=== PATIENT | female | born 1935 | race African-American/Black ===

== ENCOUNTER 2016-07-24 09:55 | Inpatient (IN) | payer OTHER, MEDICARE ==
[~2016-07-24] VITALS: Ht 162.6 cm; Wt 94.8 kg
[2016-07-24 14:30] VITALS: BP 140/82
[2016-07-24 15:56] LABS: ABSOLUTE BASOPHIL COUNT 0.1 /CUMM (0.0-0.2); ABSOLUTE EOSINOPHIL COUNT 0.3 /CUMM (0.0-0.7); ABSOLUTE GRANULOCYTE CT 6.1 /CUMM (1.4-6.5); ABSOLUTE LYMPH COUNT 2.9 /CUMM (1.2-3.4); ABSOLUTE MONOCYTE COUNT 0.6 /CUMM (0.10-0.60); BASOPHIL % 0.6 % (0.0-2.0); EOSINOPHIL % 2.9 % (0-5); GRANULOCYTE % 61.4 % (42.2-75.2); HEMATOCRIT 32.9 % (37-47); MEAN CORPUSCULAR HGB 28.8 PG (27.0-31.0); MEAN PLATELET VOLUME 10.3 FL (7.4-10.4); PLATELET COUNT 254 /CUMM (130-400); RBC DISTRIBUTION WIDTH 17.2 % (11.5-14.5); RED BLOOD CELL CT 3.66 /CUMM (4.20-5.40); WHITE BLOOD CELL COUNT 9.9 /CUMM (4.8-10.8)
--- NOTE | 2016-07-24 17:05 | History & Physical Pre-Op ---
General Information and HPI History of Present Illness: Miss Coelho is a 80-year-old diabetic female with a long-standing history of a nonhealing ulcer left heel. She has been treated for her ulcer by Dr. Clay with the additional management by an infectious disease specialist, Dr. Arredondo. She has been on a lengthy course (uncertain duration) of outpatient antibiotics. It is not clear whether Dr. Arredondo feels that her osteomyelitis was resolved. In any case, the patient has had no progression with some interval worsening of the wound bed to her left heel. Patient denies systemic signs of infection. Allergies/Medications Allergies: Coded Allergies: Penicillins (Severe, SWELLING 07/24/16) adhesive (Intermediate, RASH 07/24/16) Past History Medical History Blood Transfusion Hx: Yes Neurological: seizure EENT: NONE Cardiovascular: hypertension Respiratory: NONE Gastrointestinal: NONE Hepatic: NONE Renal: NONE Musculoskeletal: osteoarthritis Psychiatric: NONE Endocrine: diabetes, hypothyroidism Blood Disorders: DVT Cancer(s): NONE PATHOLOGY SUPERVISOR/Reproductive: NONE History of MRSA: No History of VRE: No History of CDIFF: No Isolation History: Standard Influenza Vaccine: 12/28/15 Surgical History Pertinent Surgical History: R TOE AMPUTATION L HEEL DEBRIDEMENT SPINAL FUSION Past Family/Social History Psychosocial History Where Do You Live? Home Smoking Status: Former Smoker Review of Systems Review of Systems: Unremarkable except for that noted history of present illness Exam & Diagnostic Data Last 24 Hrs of Vital Signs/I&O Vital Signs Date Time Temp Pulse Resp B/P Pulse O2 O2 Flow FiO2 Ox Delivery Rate 07/24 1430 97.0 66 18 140/82 98 Room Air Intake & Output 07/24 1600 07/24 0800 07/24 0000 Intake Total Output Total Balance Patient 210 lb Weight Physical Exam: 6 cm x 8 cm Diaz grade 2 ulceration noted to the inferior posterior margin of the left heel. There is slough overlying a mixed granular fibrotic wound bed. Moderate amount of serous drainage noted. No exposed bone noted. Pedal pulses weakly palpable bilaterally. Patient with a sensory deficit noted to the plantar feet in a moccasin type distribution bilaterally. Assessment/Plan Assessment/Plan: Necrotic ulcer left heel with probable persistent osteomyelitis left heel. Patient will be admitted for debridement and likely bone biopsy. We will consult the hospitalist service for medical comanagement. We will consult infectious disease pending the bone biopsy. As Ranked By This Provider Problem List: 1. Other acute osteomyelitis, left ankle and foot Attending MD Review Statement Attending Statement Attending MD Statement: examined this patient
[2016-07-24 22:04] VITALS: BP 132/70
[2016-07-25 07:01] VITALS: BP 130/60
--- NOTE | 2016-07-25 09:01 | RADIOLOGY REPORT ---
EXAMINATION: XR CALCANEUS, LEFT CLINICAL INFORMATION: Nonhealing ulcer of the heel. COMPARISON: Radiographs of the foot from 07/10/2016. TECHNIQUE: Lateral and axial views of the left calcaneus were obtained. FINDINGS: Again noted is a deep soft tissue wound dorsal and plantar to the calcaneus. The underlying calcaneus is eroded and sclerotic, suggestive of chronic osteomyelitis. No new findings in the examined hindfoot/ankle compared to 07/10/2016. IMPRESSION: Persistent findings of a deep soft tissue wound located dorsal and plantar to the calcaneus which remain severely eroded and sclerotic, consistent with chronic osteomyelitis.
--- NOTE | 2016-07-25 10:48 | Cons- Medical ---
ADRIENNE ALEX,MARTINE 07/25/16 1048: General Information and HPI Consulting Request Date of Consult: 07/25/16 Requested By: OJ MARQUIS DPM Reason for Consult: COMANAGEMENT FOR DIABETES, HTN, HYPOTHYROIDISM Source of Information: patient, old records Exam Limitations: no limitations History of Present Illness: Miss Zamora is a 80-year-old lady with a medical history significant for diabetes mellitus, hypertension, hypothyroidism, 2 episodes of seizures in December 2015, tapered off Keppra per neurology; 2 year history of a chronic ulcer to the left heel, per family treated by Dr. Arredondo (infectious disease) with by mouth antibiotics without alleviation of her symptoms, now been referred to Dr. Marquis for osteomyelitis for left heel chronic osteomyelitis awaiting debridement today. A medicine consultation was requested by the podiatry service for the comanagement of her chronic problems; namely diabetes, hypertension, hypothyroidism. Patient states that at home her fasting blood sugars range between 80 and 110. She cannot recall her most recent hemoglobin A1c. At present she is comfortable, denies any chest pain, shortness of breath, nausea, vomiting, diarrhea fevers or chills. Denies any history of her previous heart attack or stroke. Denies any history of cancers. Of note, in 2012, she had lower back spinal fusion surgery after which she had a left lower extremity extensive DVT which was treated with vascular surgery and post procedure she has since been on Plavix. Allergies/Medications Allergies: Coded Allergies: Penicillins (Severe, SWELLING 07/24/16) adhesive (Intermediate, RASH 07/24/16) Review of Systems Review of Systems Constitutional: Reports: see HPI. Past History Medical History Blood Transfusion Hx: Yes Neurological: seizure EENT: NONE Cardiovascular: hypertension Respiratory: NONE Gastrointestinal: NONE Hepatic: NONE Renal: NONE Musculoskeletal: osteoarthritis Psychiatric: NONE Endocrine: diabetes, hypothyroidism Blood Disorders: DVT Cancer(s): NONE OIL WELL DRILLER/Reproductive: NONE Surgical History Surgical History: R TOE AMPUTATION, L HEEL DEBRIDEMENT SPINAL FUSION Family History Relations & Conditions If Any: FATHER, ; Cause: Myocardial infarct, old. Psychosocial History Where Do You Live? Home Who Do You Live With? self Primary Language: Hungarian Smoking Status: Former Smoker ETOH Use: denies use Illicit Drug Use: denies illicit drug use Functional Ability ADLs Independent: dressing, eating, toileting, bathing. IADLs Independent: shopping, housework, finances, food prep, telephone, transportation , medication admin. Exam & Diagnostic Data Last 24 Hrs of Vital Signs/I&O Vital Signs Date Time Temp Pulse Resp B/P Pulse O2 O2 Flow FiO2 Ox Delivery Rate 07/25 0701 97.8 48 20 130/60 98 Room Air 07/24 2235 61 132/70 07/24 2204 98.0 61 20 132/70 96 Room Air 07/24 1430 97.0 66 18 140/82 98 Room Air Intake & Output 07/25 1600 07/25 0800 07/25 0000 Intake Total 0 240 Output Total 100 350 Balance -100 -350 240 Intake, Oral 0 240 Number 1 1 Bowel Movements Output, Urine 100 350 Physical Exam General Appearance: well developed/nourished, no apparent distress, alert, comfortable Head: atraumatic, normal appearance Eyes: Bilateral: normal appearance, PERRL, EOMI. Ears, Nose, Throat: normal pharynx, normal ENT inspection, hearing grossly normal Respiratory: normal breath sounds, chest non-tender Cardiovascular: regular rate/rhythm Gastrointestinal: normal bowel sounds, soft, non-tender Back: normal inspection, normal range of motion Extremities: RLE missing right great toe, LLE in sterile dressing Cranial Nerves: normal hearing, normal speech, PERRL Last 24 Hrs of Labs/Radu: Laboratory Tests 07/24/16 1500: Anion Gap 13, Estimated GFR 43 L, BUN/Creatinine Ratio 30.0 H, CBC w Diff NO MAN DIFF REQ, RBC 3.66 L, MCV 90.0, MCH 28.8, RDW 17.2 H, MPV 10.3, Gran % 61.4, Lymphocytes % 29.0, Monocytes % 6.1, Eosinophils % 2.9, Basophils % 0.6, Absolute Granulocytes 6.1, Absolute Lymphocytes 2.9, Absolute Monocytes 0.6, Absolute Eosinophils 0.3, Absolute Basophils 0.1, PUBS MCHC 32.0 L, ESR Westergren 75 H Diagnostic Data EKG Results Rate 70, W[place] 184, QRS 88, QTC 441 Sinus rhythm, nonspecific T-wave abnormalities in the lateral leads Other Results X-ray left heel July 25, 2016 PATIENT: MIRIAN ZAMORA PRESENT AGE: 80 PATIENT ACCOUNT NO: [id number] : [birth year] LOCATION: 2NA ORDERING PHYSICIAN: OJ MARQUIS DPM SERVICE DATE: 07/25/16- EXAM TYPE: RAD - XRY-HEEL, LEFT EXAMINATION: XR CALCANEUS, LEFT CLINICAL INFORMATION: Nonhealing ulcer of the heel. COMPARISON: Radiographs of the foot from 07/10/2016. TECHNIQUE: Lateral and axial views of the left calcaneus were obtained. FINDINGS: Again noted is a deep soft tissue wound dorsal and plantar to the calcaneus. The underlying calcaneus is eroded and sclerotic, suggestive of chronic osteomyelitis. No new findings in the examined hindfoot/ankle compared to 07/10/2016. IMPRESSION: Persistent findings of a deep soft tissue wound located dorsal and plantar to the calcaneus which remain severely eroded and sclerotic, consistent with chronic osteomyelitis. DICTATED BY: GILMER OCHOA MD DATE/TIME DICTATED:07/25/16853 SWEEPER OPERATOR HIGHWAYS:JONI DATE/TIME TRANSCRIBED:07/25/16853 CONFIDENTIAL, DO NOT COPY WITHOUT APPROPRIATE AUTHORIZATION. <Electronically signed in Other Vendor System> SIGNED BY: GILMER OCHOA MD 07/25/16 0901 Assessment/Plan Assessment/Plan Assessment- 1. Osteomyelitis, chronic, of the left calcaneus; likely a complication of her long-standing diabetes 2. Hypertension, well controlled 3. Hypothyroidism 4. Mild hyperkalemia, potassium 5.2 5. Diabetes mellitus, type II 6. Gout 7. Peripheral neuropathy, likely a complication of diabetes 8. Seizures, 2 episodes in December 2015, tapered off Keppra per her neurologist 9. History of provoked DVT in the past, post spinal surgery 10. Nonspecific ST to T wave abnormalities on EKG, no previous EKG to compare 11. Likely CKD, no previous labs to compare; BUN 36, [place] Slabs 1.2 Plan- - Keep nothing by mouth for now - Await OR later today - Check INR prior to procedure - Monitor off antibiotics for now - Continue clonidine, amlodipine, Lasix at current/ home doses - Continue allopurinol and Synthroid at current/ home doses - Accu-Cheks - While she is NPO, Novolin R NPO scale, D5 half-normal saline IV fluids at 75 mL per hour - Postprocedure should discontinue IV fluids, discontinue NPO scale and start on low dose insulin sliding scale - Heparin subcutaneous 5000 units every 8 hrs for DVT prophylaxis - Further management of the surgical site per podiatry - Infectious disease consultation at the discretion of podiatry - Would add on troponin, TSH, free T4 and BeB4Glm admission labs - Continue Plavix - Check CBC, chemistries and magnesium tomorrow morning Problem List: 1. Other acute osteomyelitis, left ankle and foot 2. Non-pressure chronic ulcer of left heel and midfoot with fat layer exposed Copies To: OJ MARQUIS DPM Consult Acknowledgment - Thank you for your consult request. HANNAH BONNER MD 07/26/16 1024: Assessment/Plan Consult Acknowledgment - Thank you for your consult request. Attending MD Review Statement Attending Statement Attending MD Statement: examined this patient, discuss w/resident/PA/COURTROOM CLERK, agreed w/resident/PA/COURTROOM CLERK, reviewed EMR data (avail), discussed with nursing, discussed with case mgmt Attending Assessment/Plan: 80-year-old extremely pleasant female seen and examined by me on July 25 and discussed with the resident. She has mild diabetes, hypertension hypothyroidism and neuropathy. She is here with a chronic nonhealing ulcer with likely osteo scheduled to go to the OR on the . Will follow closely for diabetic control , BP control, watch her electrolytes including the mild hyperkalemia and renal function. Likely this is baseline for her but will follow closely.
[2016-07-25 13:37] VITALS: BP 118/60
[2016-07-25 13:53] LABS: PT 11.6 SEC (9.4-12.5)
--- NOTE | 2016-07-25 15:29 | Operative Report ---
Operative/Inv Procedure Report Surgery Date: 07/25/16 Name of Procedure: 1 open incision and drainage deep to the fascial exposure of the flexor tendon and tendon sheath multiple sites left foot 2 bone biopsy left calcaneus 3 intraoperative administration of negative pressure wound therapy 4 intraoperative administration of ankle block anesthesia Pre-Operative Diagnosis: 1 open necrotic wound left heel 2 osteomyelitis left heel 3 peripheral arterial disease 4 diabetic peripheral neuropathy Post-Operative Diagnosis: The same Estimated Blood Loss: less than 50ml Surgeon/Roller Hand: OJ MARQUIS DPM Anesthesia: moderate sedation, block Operative/Procedure Note Note: After obtaining informed consent the patient was brought to the operating room and placed on the operating table in the supine position. The patient was then securely fastened to the operating table utilizing safety belt. After administration of IV sedation, 10 mL of 0.5% Marcaine plain was injected about the patient's left ankle. The foot and ankle then scrubbed prepped and draped in usual aseptic manner. Attention directed the plantar and inferior margin of the left heel, where an 8 cm x 8 cm full-thickness chronic was identified. A 15 blade visualized sharply revised skin margins. Dissection was then carried down deep to the fascia with exposure of the flexor tendon and tendon sheath multiple sites, both proximally and distally. All necrotic nonviable infected tissue sharply evacuated from bed. Dissection was then carried down to the periosteum overlying the inferior margin of the calcaneus which incised reflected. A rongeur was utilized to harvest specimen for both microbiologic and pathologic inspection. 3 L normal sterile saline fissure 50,000 units of bacitracin. Following this foot was redraped and the surgeon's top gloves changed clean gloves. Any bleeding vessels identified were cauterized or ligated as encountered. Negative pressure wound therapy was then applied followed by 4 x 4 's Kerlix and an Hua wrap. The patient is noted tolerate both procedure and anesthesia well and the patient was transported to the operating room to recovery by sent stable best assess intact all digits left foot.
[2016-07-25 16:45] VITALS: BP 130/80
[2016-07-25 21:52] VITALS: BP 104/60
[2016-07-26 06:39] VITALS: BP 120/56; BP 90/50
--- NOTE | 2016-07-26 07:12 | PN- Medicine Consult ---
MACK FITZPATRICK 07/26/16 0712: Assessment/Plan Assessment/Plan Assessment: 80-year-old -German lady with a PMH of DM, HTN, hypothyroidism, seizure disorder tapered off Keppra, chronic nonhealing ulcer of the left heel (2 years) is treated by Dr. Arredondo (infectious disease at [facility]) with PO antibiotics and now referred to Dr. Dixon for osteomyelitis. Patient underwent I&D of the site with biopsies obtained. Hemodynamically, the patient has remained stable and is currently off antibiotics. Patient reports baseline blood sugars between 8010 at home. She denies any record of previous LA or CVA. Surgical history includes lumbar spinal fusion in 2013 S/P which complicated with LE DVT for which she is currently on Plavix. Bilateral lower extremity arterial Doppler (07/26/2016): There is disease present in the left anterior tibial artery and the dorsalis pedis on the left could not be imaged. On the right, there is decrease flow in the dorsalis pedis. Nowhere present is monophasic flow or areas of significant velocity accelerations. Problem list: 1. Osteomyelitis of the left heel 2. Peripheral artery disease 3. Diabetes 4. Hypertension 5. Asymptomatic bradycardia 6. Hypothyroidism 7. CKD (unclear baseline and duration) 8. Gout 9. History of seizures (December 2015 tapered off Keppra) 10. History of provoked DVT s/p spinal surgery 11. Nonspecific ST-T changes on EKG Plan: * Arterial ultrasound as indicated above. Will vascular surgery to see if possible angiogram can be coordinated with tentative return to operating room on Sunday with Dr. Dixon * At this time the plan is to return to the operating room on Sunday for revision with debridement depending on biopsy results. We'll continue to watch off antibiotics at this time * Cardiology consult for risk stratification pending angiogram * We'll obtain records from PCP to see baseline renal function, echocardiogram * Asymptomatic bradycardia most the morning. Will obtain repeat echocardiogram and EKG * Continue Accu-Cheks, low-dose sliding scale * Plavix 75 mg daily * Allopurinol 300 mg daily * Levothyroxine 0.025 mg daily Subjective Subjective: Interval history: There are no major events overnight. Patient was noted to be bradycardic into the 50s last night with no symptoms of dizziness, shortness of breath or headache. She denies any new symptoms at this time. Review of Systems Constitutional: Reports: see HPI. EENTM: Reports: no symptoms. Cardiovascular: Reports: no symptoms. Respiratory: Reports: no symptoms. Gastrointestinal: Reports: no symptoms. Genitourinary: Reports: no symptoms. Musculoskeletal: Reports: see HPI. Objective Last 24 Hrs of Vital Signs/I&O Vital Signs Date Time Temp Pulse Resp B/P Pulse O2 O2 Flow FiO2 Ox Delivery Rate 07/26 1221 Room Air 07/26 0950 50 120/56 07/26 0947 50 120/56 07/26 0639 98.7 50 20 120/56 93 Room Air 07/25 2152 97.8 68 20 104/60 20 07/25 2142 68 104/60 07/25 1645 97.8 64 18 130/80 97 Room Air Intake & Output 07/26 1600 07/26 0800 07/26 0000 Intake Total 880 100 100 Output Total Balance 880 100 100 Intake, Oral 880 100 100 Number 1 Bowel Movements Patient 209 lb Weight Physical Exam General Appearance: no apparent distress, alert, comfortable Head: normal appearance Ears, Nose, Throat: moist mucus membranes Cardiovascular: regular rate/rhythm, normal peripheral pulses Respiratory: no respiratory distress, lungs clear, Diminshed breath sounds Abdomen: normal bowel sounds, soft, non-tender Extremities: no edema, WOund vacc in place and clean dressing intact at this time Current Medications: Current Medications Sig/Little Start time Last Medication Dose Route Stop Time Status Admin Acetaminophen 650 MG .STK-MED ONE 07/25 1952 DC PO 07/25 1953 Acetaminophen 650 MG Q4P PRN 07/24 1730 AC 07/26 PO 1151 Allopurinol 300 MG DAILY 07/25 1000 AC 07/26 PO 0947 Amlodipine Besylate 5 MG DAILY 07/25 1000 AC 07/25 PO 1010 Calcium Carbonate 500 MG BID 07/25 2200 AC 07/26 PO 0947 Clonidine 0.1 MG BID 07/24 2200 AC 07/25 PO 2142 Clopidogrel Bisulfate 75 MG DAILY 07/25 1000 AC 07/26 PO 0947 Dextrose/Sodium 1,000 ML Q13H 07/25 0600 DC 07/25 Chloride IV 0504 Furosemide 10 MG Q48H 07/25 1000 AC PO Heparin Sodium 5,000 UNIT Q8 07/25 2200 AC 07/26 (Porcine) SC 1344 Insulin Aspart 0 TIDAC 07/25 1700 AC 07/26 SC 1151 Insulin Human Regular 0 Q6 07/25 1230 DC 07/25 SC 1313 Levothyroxine Sodium 0.025 MG DAILY AC 07/25 0700 AC 07/26 PO 0557 Magnesium Oxide 400 MG BID 07/25 2200 AC 07/26 PO 0947 Patient Medication 1 ED .STK-MED ONE 07/26 1358 DC Teaching ED 07/26 1359 Pregabalin 300 MG BID 07/24 2200 AC 07/26 PO 0947 Results Last 24 Hrs Lab/Radu Results: BP 120/56, HR 50, RR 20, SPO2 93% on RA Recent Imaging Studies: Arterial Doppler bilateral lower extremities: There is disease present in the left anterior tibial artery and the dorsalis pedis on the left could not be imaged. On the right, there is decrease flow in the dorsalis pedis. Nowhere present is monophasic flow or areas of significant velocity accelerations. KAILEY ALEX,HANNAH 07/26/16 1429: Attending MD Review Statement Attending Sign Off Attending Cosign Statement: I have: examined this patient, reviewed [facility] EMR data, personally reviewd images, discussed mgmt plan w/jake, discussed mgmt plan w/CM, discussed mgmt plan w/pt. Other Findings: Patient is going to the OR today. She is a 80-year-old diabetic female who is here with a chronic heel ulcer that's likely a diabetic osteo-. She's been followed both by podiatry and ID as an outpatient. Right now we are watching her off antibiotics with plan for a bone biopsy with Dr. Dixon today. She has mild hyperkalemia and mildly elevated BUN and creatinine will check labs again in the morning with LFTs as well. And will follow closely.
--- NOTE | 2016-07-26 09:32 | Cons- Vascular Surgery ---
General Information and HPI Consulting Request Date of Consult: 07/26/16 Requested By: OJ MARQUIS DPM History of Present Illness: Ms. Coelho is a 80-year-old lady with history of hypertension, diabetes, hypothyroidism and seizure disorder. She was recently admitted to the hospital with also mild areas of the left heel. She has undergone I&D and debridement by Dr. Marquis. I was asked to evaluate the patient for adequacy of blood flow to the left foot. Allergies/Medications Allergies: Coded Allergies: Penicillins (Severe, SWELLING 07/24/16) adhesive (Intermediate, RASH 07/24/16) Past History Medical History Blood Transfusion Hx: Yes Neurological: seizure EENT: NONE Cardiovascular: hypertension Respiratory: NONE Gastrointestinal: NONE Hepatic: NONE Renal: NONE Musculoskeletal: osteoarthritis Psychiatric: NONE Endocrine: diabetes, hypothyroidism Blood Disorders: DVT Cancer(s): NONE COMBAT ENGINEER/Reproductive: NONE Surgical History Pertinent Surgical History: R TOE AMPUTATION, L HEEL DEBRIDEMENT SPINAL FUSION Family History Relations & Conditions If Any: FATHER, ; Cause: Myocardial infarct, old. Psychosocial History Where Do You Live? Home Who Do You Live With? self Primary Language: Mohawk Smoking Status: Former Smoker ETOH Use: denies use Illicit Drug Use: denies illicit drug use Functional Ability ADLs Independent: dressing, eating, toileting, bathing. IADLs Independent: shopping, housework, finances, food prep, telephone, transportation , medication admin. Review of Systems Review of Systems: Patient denies headache, dizziness, cough, palpitation, diarrhea or constipation Exam & Diagnostic Data Vital Signs and I&O Vital Signs Date Time Temp Pulse Resp B/P Pulse O2 O2 Flow FiO2 Ox Delivery Rate 07/26 0639 98.7 50 20 120/56 93 Room Air 07/25 2152 97.8 68 20 104/60 20 07/25 2142 68 104/60 07/25 1645 97.8 64 18 130/80 97 Room Air 07/25 1337 97.0 60 20 118/60 100 Room Air 07/25 1145 Room Air Intake & Output 07/26 1600 07/26 0800 07/26 0000 07/25 1600 07/25 0807/25 0000 Intake Total 100 100 525 0 240 Output Total 550 350 Balance 100 100 -25 -350 240 Intake, IV 525 Intake, Oral 100 100 0 240 Number 4 1 Bowel Movements Output, Urine 550 350 Physical Exam: Patient is alert and oriented 3 Cardiovascular: Regular rate and rhythm Lungs: Clear to auscultation bilaterally Abdomen: Soft, nontender nondistended Extremities: Palpable femoral pulses bilaterally. Bilateral upper and lower extremities warm to touch. There is a wound VAC in place on the left heel Assessment/Plan Assessment/Plan 80-year-old lady with peripheral arterial disease risk factors of hypertension and diabetes presents with osteomyelitis of the left heel. Given nonpalpable pedal pulses and osteomyelitis of the left heel, I think she will benefit from an angiogram of the left leg with possible intervention. First, I would recommend an arterial ultrasound of the left lower extremity. I will follow closely with you and once okay from the medical standpoint for an angiogram, she will be scheduled in the operating room as an inpatient. If an angiogram cannot be done on this admission due to scheduling availability, it can certainly be done as an outpatient. Consult Acknowledgment - Thank you for your consult request. Attending MD Review Statement Attending Statement Attending MD Statement: examined this patient, discuss w/resident/PA/CASE INVESTIGATOR
--- NOTE | 2016-07-26 14:35 | ULTRASOUND REPORT ---
EXAMINATION: NONINVASIVE ASSESSMENT OF THE ARTERIES OF BOTH LOWER EXTREMITIES INTERPRETING VASCULAR \T\ INTERVENTIONAL RADIOLOGIST: Олег Haider MD CLINICAL INFORMATION: Nonhealing ulcers both feet. TECHNIQUE: Bilateral lower extremity duplex ultrasound was performed with velocity measurements and waveform analysis in the common femoral arteries, profunda femoris arteries, proximal mid and distal superficial femoral arteries, popliteal arteries and tibial vessels. This study was performed only at rest. COMPARISON: None FINDINGS: velocities in cm/sec and phasicity as well as the presence of plaque are reported below RIGHT LEG: common femoral: 129 profunda femoris: 95 proximal SFA: 77 mid SFA: 101 distal SFA: 107 popliteal: 66 Posterior tibial: 155 Anterior tibial: 157 Dorsalis pedis: 29 Flow at all levels is biphasic. Arterial calcifications are noted. LEFT LEG: common femoral: 127 profunda femoris: 62 proximal SFA: 114 mid SFA: 138 distal SFA: 105 popliteal: 130 Posterior tibial: 150 Anterior tibial: 67 (diminished) Dorsalis pedis: Could not measure because of bandages. Flowed all levels is either tri or biphasic. Arterial calcification is noted. IMPRESSION: There is disease present in the left anterior tibial artery and the dorsalis pedis on the left could not be imaged. On the right, there is decrease flow in the dorsalis pedis. Nowhere present is monophasic flow or areas of significant velocity accelerations.
[2016-07-26 15:14] VITALS: BP 110/70
--- NOTE | 2016-07-26 15:35 | PN- Podiatry ---
Subjective Subjective: Patient seen at bedside without any new acute complaints. She denies nausea vomiting fever chills. Patient denies left foot pain. Objective Vital Signs and I&Os Vital Signs Date Time Temp Pulse Resp B/P Pulse O2 O2 Flow FiO2 Ox Delivery Rate 07/26 1514 97.4 70 20 110/70 97 07/26 1221 Room Air 07/26 0950 50 120/56 07/26 0947 50 120/56 07/26 0639 98.7 50 20 120/56 93 Room Air 07/25 2152 97.8 68 20 104/60 20 07/25 2142 68 104/60 07/25 1645 97.8 64 18 130/80 97 Room Air Intake & Output 07/26 1600 07/26 0800 07/26 0000 07/25 1600 07/25 0800 07/25 0000 Intake Total 1380 100 100 525 0 240 Output Total 550 350 Balance 1380 100 100 -25 -350 240 Intake, IV 525 Intake, Oral 1380 100 100 0 240 Number 2 4 1 Bowel Movements Output, Urine 550 350 Patient 209 lb Weight Physical Exam: Dressing left foot clean dry and intact. VAC in place with approximate 75 mL of serosanguineous drainage noted to the canister. We went deep palpation bilateral lower extremity's. Assessment/Plan Assessment/Plan Nonhealing ulcer with probable osteomyelitis left foot. Follow-up pathology and cultures. Patient to the OR hopefully coordinated with vascular for revision versus skin grafting pending pathology. Core Measures/Miscellaneous Venous Thromboembolism VTE Risk Factors: Age > 40, Immobility, paresis, Surgery VTE Contraindications: No Contraindications VTE Diagnosis: No Beta Jesus Alberto Is Beta Jesus Alberto a Home Med? No If Yes, Was This Ordered Today? No Antibiotics Is Patient on Antibiotics? No Attending MD Review Statement Attending Statement Attending MD Statement: examined this patient
[2016-07-26 21:35] VITALS: BP 174/70
--- NOTE | 2016-07-27 07:17 | PN- Medicine Consult ---
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 Arredondo (infectious disease at [facility]) with PO antibiotics and now referred to Dr. Dixon for osteomyelitis. Patient underwent I&D of the site with biopsies obtained. Hemodynamically, the patient has remained stable and is currently off antibiotics. She denies any record of previous ME or CVA. Surgical history includes lumbar spinal fusion in 2012 S/P which complicated with LE DVT for which she is currently on Plavix. Bilateral lower extremity arterial Doppler (07/26/2016): There is disease present in the left anterior tibial artery and the dorsalis pedis on the left could not be imaged. On the right, there is decrease flow in the dorsalis pedis. Nowhere present is monophasic flow or areas of significant velocity accelerations. Problem list: 1. Osteomyelitis of the left heel 2. Peripheral artery disease 3. Diabetes 4. Hypertension 5. Asymptomatic bradycardia 6. Hypothyroidism 7. CKD (unclear baseline and duration) 8. Gout 9. History of seizures (December 2015 tapered off Keppra) 10. History of provoked DVT s/p spinal surgery 11. Nonspecific ST-T changes on EKG Plan: * Currently awaiting records from [place] and [facility] * Cardiology consult for this morning on risk stratification * Continue Accu-Cheks, low-dose sliding scale. NPO after midnight pending return to operating room tomorrow * Plavix 75 mg daily * Allopurinol 300 mg daily * Levothyroxine 0.025 mg daily Problem List: 1. Other acute osteomyelitis, left ankle and foot Subjective Subjective: Interval history: This morning the patient denies being in any acute distress. She did experience some discomfort from her left heel last night which was relieved with Tylenol. She denies any fevers, chills, chest pain, shortness of breath palpitations or dizziness over the past 24 hours. Review of Systems Constitutional: Reports: see HPI. EENTM: Reports: no symptoms. Cardiovascular: Reports: no symptoms. Respiratory: Reports: no symptoms. Gastrointestinal: Reports: no symptoms. Genitourinary: Reports: no symptoms. Musculoskeletal: Reports: see HPI. Objective Last 24 Hrs of Vital Signs/I&O Vital Signs Date Time Temp Pulse Resp B/P Pulse O2 O2 Flow FiO2 Ox Delivery Rate 07/27 0730 97.9 65 20 164/70 96 Room Air 07/27 0729 97.9 65 20 164/70 96 Room Air 07/26 2223 63 174/70 07/26 2135 98.2 63 20 174/70 96 Room Air 07/26 1514 97.4 70 20 110/70 97 07/26 1221 Room Air 07/26 0950 50 120/56 07/26 0947 50 120/56 Intake & Output 07/27 0800 07/27 0000 07/26 1600 Intake Total 695 556 7081 Output Total 600 Balance 100 -500 1380 Intake, Oral 231 345 9555 Number 2 Bowel Movements Output, Urine 600 Patient 209 lb Weight Physical Exam General Appearance: no apparent distress, alert, comfortable Head: atraumatic Cardiovascular: regular rate/rhythm, normal peripheral pulses Respiratory: no respiratory distress, Diminished breath sounds in the basilar regions bilaterally Abdomen: normal bowel sounds, soft, non-tender Extremities: left heel covered in a Hua bandage at this time with no evidence of active bleeding/drainage. Wound VAC in place with approximately 100 mL dark red fluid Current Medications: Current Medications Sig/Little Start time Last Medication Dose Route Stop Time Status Admin Acetaminophen 650 MG .STK-MED ONE 07/26 2218 DC PO 07/26 2219 Acetaminophen 650 MG .STK-MED ONE 07/26 1147 DC PO 07/26 1148 Acetaminophen 650 MG Q4P PRN 07/24 1730 AC 07/26 PO 2223 Allopurinol 300 MG DAILY 07/25 1000 AC 07/26 PO 0947 Amlodipine Besylate 5 MG DAILY 07/25 1000 AC 07/25 PO 1010 Calcium Carbonate 500 MG BID 07/25 2200 AC 07/26 PO 2223 Clonidine 0.1 MG BID 07/24 2200 AC 07/26 PO 2223 Clopidogrel Bisulfate 75 MG DAILY 07/25 1000 AC 07/26 PO 0947 Furosemide 10 MG Q48H 07/25 1000 AC PO Heparin Sodium 5,000 UNIT Q8 07/25 2200 AC 07/27 (Porcine) SC 0637 Insulin Aspart 0 TIDAC 07/25 1700 AC 07/26 SC 1700 Levothyroxine Sodium 0.025 MG DAILY AC 07/25 0700 AC 07/27 PO 0637 Magnesium Oxide 400 MG BID 07/25 2200 AC 07/26 PO 2224 Patient Medication 1 ED .[facility]-MED ONE 07/26 1358 DC Teaching ED 07/26 1359 Pregabalin 300 MG BID 07/240 AC 07/26 PO 2222 Results Last 24 Hrs Lab/Radu Results: Laboratory Tests 07/27/16 0632: Sodium Pending, Potassium Pending, Chloride Pending, Carbon Dioxide Pending, Anion Gap Pending, BUN Pending, Creatinine Pending, BUN/Creatinine Ratio Pending , Total Bilirubin Pending, Direct Bilirubin Pending, AST Pending, ALT Pending, Alkaline Phosphatase Pending, Total Protein Pending, Albumin Pending, CBC w Diff Pending, WBC Pending, RBC Pending, Hgb Pending, Hct Pending, MCV Pending, MCH Pending, RDW Pending, Plt Count Pending, MPV Pending, PUBS MCHC Pending 07/26/16 1650: Troponin I < 0.01 KAILEY ALEX,HANNAH 07/27/16 1000: Attending MD Review Statement Attending Sign Off Attending Cosign Statement: I have: examined this patient, reviewed [facility] EMR data, discussd w/resident/PA/ [employer], discussed mgmt plan w/jake, discussed mgmt plan w/pt, agreed w/resident/PA/ [employer]. Other Findings: Patient feels okay. Her blood pressure slightly high at 160/70 but she is asymptomatic from it. She is a 80-year-old with diabetes, peripheral arterial disease, hypertension and hypothyroidism who is here with chronic osteo of the left calcaneus. Dr. Dixon is planning to take her back to the OR on Sunday for further surgical treatment and is trying to coordinate with vascular for revascularization at the same time. Given all of her problems, her bradycardia and her atherosclerotic equivalent, we called cardiology to see her in anticipation of vascular revascularization on Sunday. We need more records from [place] and [place] as to the workup done so far and medications including Plavix that she is on. She also likely has CKD and will need to follow that.
[2016-07-27 07:29] VITALS: BP 164/70
[2016-07-27 07:30] VITALS: BP 164/70
[2016-07-27 07:51] LABS: ABSOLUTE BASOPHIL COUNT 0 /CUMM (0.0-0.2); ABSOLUTE EOSINOPHIL COUNT 0.2 /CUMM (0.0-0.7); ABSOLUTE GRANULOCYTE CT 4.7 /CUMM (1.4-6.5); ABSOLUTE LYMPH COUNT 2.6 /CUMM (1.2-3.4); ABSOLUTE MONOCYTE COUNT 0.4 /CUMM (0.10-0.60); BASOPHIL % 0.4 % (0.0-2.0); EOSINOPHIL % 3.1 % (0-5); GRANULOCYTE % 58.9 % (42.2-75.2); HEMATOCRIT 30.8 % (37-47); MEAN CORPUSCULAR HGB CONC 32.1 G/DL (33.0-37.0); MEAN CORPUSCULAR VOLUME 90.2 FL (81.0-99.0); MEAN PLATELET VOLUME 10.6 FL (7.4-10.4); PLATELET COUNT 221 /CUMM (130-400); RBC DISTRIBUTION WIDTH 16.8 % (11.5-14.5); RED BLOOD CELL CT 3.42 /CUMM (4.20-5.40); WHITE BLOOD CELL COUNT 8.1 /CUMM (4.8-10.8)
--- NOTE | 2016-07-27 10:50 | Event Note ---
Event Note Event Note: Medical record history: [facility]: * LLE angiogram with stenting of left superficial femoral artery (05/24/2015). Normal aorta and iliac arteries bilaterally. 70% calcified stenosis of the distal superficial femoral artery. Single-vessel runoff to the foot via the peroneal artery with collateralization to the posterior tibial artery. 7 mm 4 cm self-expanding stent placed and distal superficial femoral artery with 0% residual stenosis * Surgical history: Lumbar fusion with transpedicular screws in L2, L3, L5. Fusion at L4-L5 level. (2004) [facility]: * EGD 04/28/2013: Severe distal erosive gastritis , 3-4 cm sliding hiatal hernia * Colonoscopy in 2010: Diverticulosis, colonic polyp * Chronic osteomyelitis of left heel ongoing 3 years, on suppressive doxycycline 100 mg PO Q 12 and cefuroxime 250 mg PO Q12 * Brief symptomatic seizures 2 on 03/25/2016 * CTA head and neck (03/26/2016): Atherosclerotic plaque bilateral carotids. 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 Moderate stenosis of the intracranial portion of R vertebral artery, 55% stenosis of cavernous segment of internal carotids. This test was ordered in the setting of an episode of seizure during that admission. Pertinent labs at the time: calcium 5.5, magnesium 0.4. Patient was on Keppra 500 mg Q12 which has since been tapered off. Protonix discontinued at the time for potential exacerbation of hypomagnesemia. Lasix changed to Q48hrs * MRI brain (03/29/2016): Limited exam secondary to motion. No acute intracranial process. Left sphenoid sinus mucocele * EEG (03/26/2016): Normal awake and sleep continues EEG. No seizures, periodic patterns or epileptiform discharges were seen. 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
--- NOTE | 2016-07-27 12:35 | Cons- Cardiology ---
General Information and HPI Consulting Request Date of Consult: 07/27/16 Requested By: OJ MARQUIS DPM Reason for Consult: Preoperative cardiac risk assessment Source of Information: patient History of Present Illness: This is a 72 atrial female with a past medical history of hypertension, diabetes , peripheral artery disease with reported prior lower extremity stent, hypothyroidism, and chronic left foot osteomyelitis who is being evaluated for possible further debridement and additional lower extremity revascularization. The patient denies any known cardiac history and denies any history of chest pain, palpitations, dyspnea, dizziness, headache, or slurring of speech. She does not improve very much at baseline and uses a wheelchair primarily because of the chronic osteomyelitis. On my interview with the patient today the she offered no complaints other than discomfort in her left leg. She denies orthopnea or paroxysmal nocturnal dyspnea. Allergies/Medications Allergies: Coded Allergies: Penicillins (Severe, SWELLING 07/24/16) adhesive (Intermediate, RASH 07/24/16) Current Medications: Current Medications Sig/Little Start time Last Medication Dose Route Stop Time Status Admin Acetaminophen 650 MG .STK-MED ONE 07/26 2218 DC PO 07/26 221 Acetaminophen 650 MG Q4P PRN 07/24 1730 AC 07/27 PO 0859 Allopurinol 300 MG DAILY 07/25 1000 AC 07/27 PO 0857 Amlodipine Besylate 5 MG DAILY 07/25 1000 AC 07/27 PO 0857 Calcium Carbonate 500 MG BID 07/25 2200 AC 07/27 PO 0856 Clonidine 0.1 MG BID 07/24 2200 AC 07/27 PO 0857 Clopidogrel Bisulfate 75 MG DAILY 07/25 1000 AC 07/27 PO 0857 Furosemide 10 MG Q48H 07/25 1000 AC 07/27 PO 0900 Heparin Sodium 5,000 UNIT Q8 07/25 2200 AC 07/27 (Porcine) SC 0637 Insulin Aspart 0 TIDAC 07/25 1700 AC 07/27 SC 0900 Levothyroxine Sodium 0.025 MG DAILY AC 07/25 0700 AC 07/27 PO 0637 Magnesium Oxide 400 MG BID 07/25 2200 AC 07/27 PO 0857 Nystatin 1 JUAN JOSE TID PRN 07/27 0930 AC TOP Patient Medication 1 ED .STK-MED ONE 07/26 1358 DC Teaching ED 07/26 1359 Pregabalin 300 MG BID 07/24 2200 AC 07/27 PO 0857 Review of Systems Review of Systems: Review of systems as per HPI. The remainder of a 10 point review of systems was reviewed and was otherwise negative. Past History Medical History Blood Transfusion Hx: Yes Neurological: seizure EENT: NONE Cardiovascular: hypertension Respiratory: NONE Gastrointestinal: NONE Hepatic: NONE Renal: NONE Musculoskeletal: osteoarthritis Psychiatric: NONE Endocrine: diabetes, hypothyroidism Blood Disorders: DVT Cancer(s): NONE AUTO HIKER/Reproductive: NONE Surgical History Surgical History: R TOE AMPUTATION, L HEEL DEBRIDEMENT SPINAL FUSION Family History Relations & Conditions If Any: FATHER, ; Cause: Myocardial infarct, old. Psychosocial History Where Do You Live? Home Who Do You Live With? self Primary Language: Lao Smoking Status: Former Smoker ETOH Use: denies use Illicit Drug Use: denies illicit drug use Functional Ability ADLs Independent: dressing, eating, toileting, bathing. IADLs Independent: shopping, housework, finances, food prep, telephone, transportation , medication admin. Exam & Diagnostic Data Vital Signs and I&O Vital Signs Date Time Temp Pulse Resp B/P Pulse O2 O2 Flow FiO2 Ox Delivery Rate 07/27 1145 Room Air 07/27 0857 65 164/70 07/27 0857 65 164/70 07/27 0730 97.9 65 20 164/70 96 Room Air 07/27 0729 97.9 65 20 164/70 96 Room Air 07/26 2223 63 174/70 07/26 2135 98.2 63 20 174/70 96 Room Air 07/26 1514 97.4 70 20 110/70 97 Intake & Output 07/27 1600 07/27 0800 07/27 0000 07/26 1600 07/26 0800 07/26 0000 Intake Total 400 550 867 4627 100 100 Output Total 300 600 Balance 100 100 -500 1380 100 100 Intake, Oral 400 188 134 8173 100 100 Number 1 2 Bowel Movements Output, Urine 300 600 Patient 209 lb Weight Physical Exam: General: no apparent distress. Alert. Eyes: No obvious scleral icterus. HEENT: No jugular venous distention or abnormal jugular venous pulsations. Cardiovascular: Normal intensity S1/S2. Regular. Respiratory: No rales or rhonchi. Abdomen: no guarding or rebound tenderness. Musculoskeletal: Decreased peripheral pulses, left foot wound VAC, trace lower extremity edema Skin: Warm Neurologic: No gross focal deficits noted. Labs/Radu Results: Laboratory Tests 07/27 07/26 07/25 0632 1650 1310 Chemistry Sodium (137 - 145 mmol/L) 145 Potassium (3.5 - 5.1 mmol/L) 5.1 Chloride (98 - 107 mmol/L) 110 H Carbon Dioxide (22 - 30 mmol/L) 26 Anion Gap (5 - 16) 9 BUN (7 - 17 mg/dL) 39 H Creatinine (0.5 - 1.0 mg/dL) 1.3 H Estimated GFR (>60 ml/min) 40 L BUN/Creatinine Ratio (7 - 25 %) 30.0 H Total Bilirubin (0.2 - 1.3 mg/dL) 0.4 Direct Bilirubin (< 0.4 mg/dL) 0.3 AST (14 - 36 U/L) 27 ALT (9 - 52 U/L) 35 Alkaline Phosphatase (<127 U/L) 116 Troponin I (< 0.11 ng/ml) < 0.01 Total Protein (6.3 - 8.2 g/dL) 7.1 Albumin (3.5 - 5.0 g/dL) 3.4 L Coagulation PT (9.4 - 12.5 SEC) 11.6 INR (0.90 - 1.19) 1.11 Hematology CBC w Diff NO MAN DIFF REQ WBC (4.8 - 10.8 /CUMM) 8.1 RBC (4.20 - 5.40 /CUMM) 3.42 L Hgb (12.0 - 16.0 G/DL) 9.9 L Hct (37 - 47 %) 30.8 L MCV (81.0 - 99.0 FL) 90.2 MCH (27.0 - 31.0 PG) 29.0 RDW (11.5 - 14.5 %) 16.8 H Plt Count (130 - 400 /CUMM) 221 MPV (7.4 - 10.4 FL) 10.6 H Gran % (42.2 - 75.2 %) 58.9 Lymphocytes % (20.5 - 51.1 %) 32.2 Monocytes % (1.7 - 9.3 %) 5.4 Eosinophils % (0 - 5 %) 3.1 Basophils % (0.0 - 2.0 %) 0.4 Absolute Granulocytes (1.4 - 6.5 /CUMM) 4.7 Absolute Lymphocytes (1.2 - 3.4 /CUMM) 2.6 Absolute Monocytes (0.10 - 0.60 /CUMM) 0.4 Absolute Eosinophils (0.0 - 0.7 /CUMM) 0.2 Absolute Basophils (0.0 - 0.2 /CUMM) 0 PUBS MCHC (33.0 - 37.0 G/DL) 32.1 L Diagnostic Data EKG Results Tracing was personally reviewed and shows sinus rhythm at 63 bpm with nonspecific STT abnormalities Other Results Lower extremity ultrasound IMPRESSION: There is disease present in the left anterior tibial artery and the dorsalis pedis on the left could not be imaged. On the right, there is decrease flow in the dorsalis pedis. Nowhere present is monophasic flow or areas of significant velocity accelerations. Assessment/Plan Assessment/Plan 1. Peripheral arterial disease with reported prior lower extremity stent 2. Chronic left foot osteomyelitis requiring debridement 3. Hypertension 4. History of diabetes 5. History of hypothyroidism Patient offers no history of chest pain or dyspnea. Currently has no evidence of acute coronary syndrome or decompensated congestive heart failure. Unclear why the patient is not on statin therapy in the setting of known peripheral arterial disease with diabetes. Would obtain a baseline lipid panel and initiate statin therapy in the absence of any known medical contraindication. I suspect her low level asymptomatic bradycardia is due to clonidine use which can be continued. Blood pressure elevated today but that may be due to the fact that she did not get her amlodipine yesterday. If blood pressure continues to run above goal can consider increasing the amlodipine. She is estimated to be at moderate cardiovascular risk for the planned procedures given her medical comorbidities including documented peripheral vascular disease. Sae Shin MD [facility] Consult Acknowledgment - Thank you for your consult request.
--- NOTE | 2016-07-27 13:36 | PN- Podiatry ---
Subjective Subjective: Patient seen at bedside with no new complaints. Afebrile overnight. Patient denies left foot pain. Objective Vital Signs and I&Os Vital Signs Date Time Temp Pulse Resp B/P Pulse O2 O2 Flow FiO2 Ox Delivery Rate 07/27 1145 Room Air 07/27 0857 65 164/70 07/27 0857 65 164/70 07/27 0730 97.9 65 20 164/70 96 Room Air 07/27 0729 97.9 65 20 164/70 96 Room Air 07/26 2223 63 174/70 07/26 2135 98.2 63 20 174/70 96 Room Air 07/26 1514 97.4 70 20 110/70 97 Intake & Output 07/27 1600 07/27 0800 07/27 0000 07/26 1600 07/26 0800 07/26 0000 Intake Total 400 044 799 3722 100 100 Output Total 300 600 Balance 100 100 -500 1380 100 100 Intake, Oral 400 490 681 5115 100 100 Number 1 2 Bowel Movements Output, Urine 300 600 Patient 209 lb Weight Physical Exam: Dressing left foot clean dry and intact. No strikethrough identified. VAC in place with approximately 110 mL of serosanguineous drainage noted to the canister. No pain with deep palpation bilateral lower extremities. Assessment/Plan Assessment/Plan Nonhealing ulcer likely left foot osteomyelitis. Follow-up pathology. Patient' s the OR tomorrow for grafting versus further debridement pending path. Core Measures/Miscellaneous Venous Thromboembolism VTE Risk Factors: Age > 40, Immobility, paresis, Surgery VTE Contraindications: No Contraindications VTE Diagnosis: No Beta Jesus Alberto Is Beta Jesus Alberto a Home Med? No If Yes, Was This Ordered Today? No Antibiotics Is Patient on Antibiotics? No Attending MD Review Statement Attending Statement Attending MD Statement: examined this patient
--- NOTE | 2016-07-27 13:39 | Discharge Summary ---
Visit Information Visit Dates Admission Date: 07/24/16 Discharge Date: 08/05/2016 Hospital Course Course Attending Physician: OJ DIXON DPM Primary Care Physician: PANCHO NUR MD Other Care Providers: Dr. Shin (cardiology) Dr. Boogie (vascular surgeon) Consulting Request: Consulting Specialty: Cardiology Hospital Course: Mrs Coelho 80-year-old -[place] lady with a PMH of DM, HTN, hypothyroidism, seizure disorder tapered off Keppra, Chronic osteomyelitis of left heel ongoing 3 years, on suppressive doxycycline 100 mg PO Q 12 and cefuroxime 250 mg PO Q12 treated by Dr. Arredondo (infectious disease at [facility]), vitamin D deficiency, Stage III CKD, anemia who was admitted for evaluation of a chronic nonhealing ulcer to the left heel with previous diagnosis of osteomyelitis. Past Surgical history: Lumbar fusion with transpedicular screws in L2, L3, L5. Fusion at L4-L5 level. (2004). Previous angiogram of left lower extremity (05/24/2015): LLE angiogram with stenting of left superficial femoral artery (05/24/2015). Normal aorta and iliac arteries bilaterally. 70% calcified stenosis of the distal superficial femoral artery. Single-vessel runoff to the foot via the peroneal artery with collateralization to the posterior tibial artery. 7 mm 4 cm self-expanding stent placed and distal superficial femoral artery with 0% residual stenosis. VS on admission: BP 140/82, HR 66, RR 18, SPO2 98% on RA, T 97.0 Pertinent physical exam findings on admission: Right lower extremity missing right great toe. Left lower extremity was covered in a sterile dressing Pertinent labs on admission: WBC 9.9, H&H 10.5/32.9, platelets 254, sodium 141, potassium 5.2, chloride 105, BUN/CR 36/1.2 EKG: HR 70, NV interval 184, QTC 441. Sinus rhythm, nonspecific T-wave abnormalities in the lateral leads X-ray of the left heel: Persistent findings of a deep soft tissue wound located dorsal and plantar to the calcaneus which remain severely eroded and sclerotic, consistent with chronic osteomyelitis. Bilateral lower extremity arterial Doppler (07/26/2016): There is disease present in the left anterior tibial artery and the dorsalis pedis on the left could not be imaged. On the right, there is decrease flow in the dorsalis pedis. Nowhere present is monophasic flow or areas of significant velocity accelerations. Patient was admitted to the general medicine floor with comanagement between Kandis and internal medicine team for the following problems: 1. Osteomyelitis of the left calcaneus s/p I&D X2, split thickness skin graft to left heel 2. 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 Diarrhea: Resolved 4. Asymptomatic bradycardia 5. Hypomagnesemia 6. PAD 7. Pain management 8. Diabetes 9. Hypertension 10. Hypothyroidism 11. Stage III chronic kidney disease 12. Gout 13. Previous seizure in the setting of hypomagnesemia and hypocalcemia 14. History of provoked DVT s/p spinal surgery Hospital course: 1. Osteomyelitis of the left calcaneus * The patient was found to have an open necrotic wound of the left heel with a known previous diagnosis of osteomyelitis in the setting of PAD and diabetic peripheral neuropathy. * I&D deep to the fascial exposure of the flexor tendon and tendon sheath, biopsies of left calcaneus on 07/25/2016: Negative cultures * Repeat I&D, biopsy and debridement of left calcaneus on 07/31/2016: Bone biopsy culture positive for enterococcus, Morganelli morganii. Patient received 1 dose of meropenem on 08/04/2016 * Split thickness skin graft to left heel on 08/03/2016 with application of negative pressure wound VAC * Plan for wound VAC to be in place for a few days, strict nonweightbearing status until follow-up with Dr. Dixon * Bone biopsy from 07/31/2016 positive for enterococcus, Morganelli morganii. Throughout the hospital course the patient was assessed by our infectious disease specialist Dr. Telles, maintained off antiobitics but received 1 dose of meropenem 2. Diarrhea: * Intermittently throughout the hospital course the patient was noted to have multiple episodes of loose bowel movements. Stool C. difficile returned negative , no evidence of leukocytosis/bandemia or fevers throughout the hospital course * In retrospect, the patient had been receiving magnesium supplementation PO BID which likely played a role in the diarrhea. Complete resolution after discontinuation of the magnesium supplementation + 2 doses of loperamide 3. Asymptomatic bradycardia * The patient's heart rate most of the hospital course was in the 50s. We consulted with cardiology (Dr Rousseau and Dr Isaac). This was attributed likely to be secondary to the sympathetic suppression in the setting of clonidine * Prior antihypertensive regimen: Clonidine 0.1 mg BID, amlodipine 5 mg daily * Thyroid function studies stable * Plan for tapering off clonidine and continuing her on Norvasc: 5 day taper off clonidine (started 08/03/2016) with 0.1 mg daily 3 days, 0.05 mg daily 2 days and then stop. * Amlodipine 2.5 mg daily and titrate up as tolerated for target blood pressure per JNC 8 criteria 4. Peripheral artery disease * Continued Plavix 75 mg daily * We started the patient on atorvastatin 40 mg daily * Patient was seen by our vascular surgeon (Dr. Boogie) * Ultrasound-guided right common femoral artery access on 07/31/2016. Found to have patent aorta no significant disease, patent BL common iliac, external iliac and intracardiac arteries with no significant disease. Patent L common femoral and profunda femoris with no significant disease. SFA is patent from its origin with no significant disease. Popliteal arteries patent and no significant disease. Tibial peroneal trunk is patent. Anterior tibial artery patent from its origin with a severe disease in the proximal segment. This artery shortly thereafter includes and reconstitutes at the dorsalis pedis. The posterior tibial artery has a very tight stenosis from its origin and has diffuse disease in the midsegment. This artery occludes in the distal segment and reconstitutes at the ankle 5. Diabetes * Diabetic diet, Low-dose sliding scale and Accu-Cheks throughout the hospital course with blood sugars well controlled 6. Hypertension * Tapering off clonidine and continuing her on Norvasc: 5 day taper off clonidine (started 08/03/2016) with 0.1 mg daily 3 days, 0.05 mg daily 2 days and then stop. * Amlodipine 2.5 mg daily and titrate up as tolerated * Recommend follow-up blood pressure readings and HR readings over the next week , follow-up with PCP for further medication adjustment 7. Hypothyroidism * Continued Synthroid 0.025 mg daily * TFTs checked during the hospital course WNL 8. Stage III chronic kidney disease * Remained stable throughout the hospital course. Intermittent gentle diuresis with D5 half-normal saline 9. Gout * Continued allopurinol 300 mg daily 10. Seizure in the setting of hypomagnesemia and hypocalcemia * Calcium levels remained within normal limits. Intermittent mild hypomagnesemia supplemented to maintain above 2.0 11. History of provoked DVT s/p spinal surgery * DVT prophylaxis maintained with heparin 5000 units subcutaneous Q8 Allergies: Coded Allergies: Penicillins (Severe, SWELLING 07/24/16) adhesive (Intermediate, RASH 07/24/16) Disposition Summary Disposition Principal Diagnosis: 1. Osteomyelitis of the left calcaneus s/p I&D X2, split thickness skin graft to left heel Additional Diagnosis: 2. 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 Diarrhea: Resolved 4. Asymptomatic bradycardia 5. Hypomagnesemia 6. PAD 7. Pain management 8. Diabetes 9. Hypertension 10. Hypothyroidism 11. Stage III chronic kidney disease 12. Gout 13. Previous seizure in the setting of hypomagnesemia and hypocalcemia 14. History of provoked DVT s/p spinal surgery Discharge Disposition: SNF Discharge Instructions General Discharge Information Code Status: Full Code Patient's Diet: Consistent carbohydrate 3 Patient's Activity: Strict nonweightbearing status to the left foot until cleared by Dr. Dixon Follow-Up Instructions/Appts: Please follow-up with Dr. Dixon at the next scheduled appointment. Please follow-up with her PCP within one week after discharge. Please have blood pressure readings checked daily. Antihypertensive regimen has been adjusted and medication dosages may have to be changed accordingly. Medications at Discharge Discharge Medications: Stop taking the following medications: Clonidine HCl (Clonidine HCl) 0.1 MG TABLET ORAL TWICE DAILY Qty = 180 Continue taking these medications: Pregabalin (Lyrica) 300 MG CAPSULE 1 Capsule ORAL TWICE DAILY Qty = 180 Calcium Carbonate (Calcium) 500 MG CALCIUM (1,250 MG) TAB.CHEW 2 Tablet ORAL DAILY Magnesium Oxide (Magnesium Oxide) 400 MG TABLET 1 Tablet ORAL TWICE DAILY Qty = 90 Furosemide (Furosemide) 40 MG TABLET 1 Tablet ORAL EVERY 48 HOURS (Every 2 days) Qty = 90 Allopurinol (Allopurinol) 300 MG TABLET 1 Tablet ORAL DAILY Qty = 90 Amlodipine Besylate (Amlodipine Besylate) 5 MG TABLET 1 Tablet ORAL DAILY Qty = 90 Cholecalciferol (Vitamin D3) (Vitamin D) 1,000 UNIT TABLET 1 Tablet ORAL DAILY Clopidogrel Bisulfate (Clopidogrel) 75 MG TABLET 1 Tablet ORAL DAILY Qty = 90 Ferrous Sulfate (Ferrous Sulfate) 325 MG (65 MG IRON) TABLET 1 Tablet ORAL DAILY Glipizide (Glipizide ER) 10 MG TAB.ER.24 1 Tablet ORAL DAILY Qty = 90 Levothyroxine Sodium (Levothyroxine Sodium) 25 MCG TABLET 1 Tablet ORAL DAILY BEFORE BREAKFAST Qty = 90 Sitagliptin Phosphate (Januvia) 50 MG TABLET 1 Tablet ORAL DAILY Qty = 90 Nystatin (Nystop) 100,000 UNIT/GRAM POWDER 1 Application On the skin TWICE DAILY Qty = 60 Start taking the following new medications: Atorvastatin Calcium (Atorvastatin Calcium) 40 MG TABLET 1 Tablet ORAL DAILY Qty = 30 No Refills Clonidine HCl (Clonidine HCl) 0.1 MG TABLET 0.5 Tablet ORAL DAILY Qty = 2 No Refills Instructions: Take one tab on 08/06/16 and 08/07/16. Being tapered off this medication Acetaminophen (Acetaminophen) 500 MG TABLET 1 Tablet ORAL EVERY 4 HOURS NEEDED as needed for PAIN SCALE 4-6 (MODERATE ) Qty = 30 No Refills Copies To: CARL ALEX,MUNIR; KAILEY ALEX,VEE Lee; KAILEY ALEX,HANNAH Zaldivar; DOUGLAS ALEX, VAMSHI; KANDIS ROSS,OJ; JOYCE ALEX,PEDRO LUIS Chavis; GATITO ALEX,EVANGELINA; BOOM ALEX,PANCHO [place]
[2016-07-27 15:58] VITALS: BP 120/80
[2016-07-27 22:45] VITALS: BP 118/68
--- NOTE | 2016-07-28 07:04 | PN- Medicine Consult ---
See Addendum Assessment/Plan Assessment/Plan Assessment: 80-year-old -[place] lady with a PMH of DM, HTN, hypothyroidism, seizure disorder tapered off Keppra, Chronic osteomyelitis of left heel ongoing 3 years , on suppressive doxycycline 100 mg PO Q 12 and cefuroxime 250 mg PO Q12 treated by Dr. Arredondo (infectious disease at [facility]), vitamin D deficiency, Stage III CKD, anemia who is currently being managed for her chronic osteomyelitis. Surgical history: Lumbar fusion with transpedicular screws in L2, L3, L5. Fusion at L4-L5 level. (2004). Angiogram of left lower extremity (05/24/2015): LLE angiogram with stenting of left superficial femoral artery (05/24/2015). Normal aorta and iliac arteries bilaterally. 70% calcified stenosis of the distal superficial femoral artery. Single-vessel runoff to the foot via the peroneal artery with collateralization to the posterior tibial artery. 7 mm 4 cm self-expanding stent placed and distal superficial femoral artery with 0% residual stenosis Bilateral lower extremity arterial Doppler (07/26/2016): There is disease present in the left anterior tibial artery and the dorsalis pedis on the left could not be imaged. On the right, there is decrease flow in the dorsalis pedis. Nowhere present is monophasic flow or areas of significant velocity accelerations. Patient underwent I&D of the site with biopsies obtained on 07/25/2016 with negative cultures thus far Problem list: 1. Osteomyelitis of the left heel 2. Diarrhea 3. Asymptomatic bradycardia 4. Peripheral artery disease 5. Diabetes 6. Hypertension 7. Hypothyroidism 8. Stage III chronic kidney disease 9. Gout 10. Seizure in the setting of hypomagnesemia and hypocalcemia 11. History of provoked DVT/PE spinal surgery Plan: * Patient remains hemodynamically stable thus far, afebrile, no evidence of leukocytosis * Follow-up stool studies for C. difficile. Patient was on cefuroxime and doxycycline for an extended period of time * Asymptomatic bradycardia: Patient's heart rate has hovered around the 50s to 60s, stable BP throughout admission. Currently not on any AV danielle blocking agents. TFTs within normal limits. We'll continue to monitor * NPO at this time for return to the operating room for possible grafting today. We'll continue to monitor biopsy cultures * Tentative plan is for repeat angiogram with vascular surgery on Sunday * Continue Accu-Cheks, insulin sliding scale * Plavix 75 mg daily * Allopurinol 300 mg daily * Levothyroxine 0.025 mg daily Problem List: 1. Chronic osteomyelitis of hindfoot 2. Diarrhea 3. Bradycardia 4. PAD (peripheral artery disease) 5. DM (diabetes mellitus) 6. HTN (hypertension) 7. CKD (chronic kidney disease) Subjective Subjective: Interval history: The patient did have a few a few episodes of nonbloody loose bowel movements last night, one this morning. This was associated with some hyperactive bowel sounds but denies any abdominal pain/crampy, nausea vomiting, fevers or chills. The pain in her left heel is well-controlled at this time. Review of Systems Constitutional: Reports: see HPI. EENTM: Reports: no symptoms. Cardiovascular: Reports: no symptoms. Respiratory: Reports: no symptoms. Gastrointestinal: Reports: see HPI. Musculoskeletal: Reports: see HPI. Objective Last 24 Hrs of Vital Signs/I&O Vital Signs Date Time Temp Pulse Resp B/P Pulse O2 O2 Flow FiO2 Ox Delivery Rate 07/28 0739 98.9 53 20 112/70 93 Room Air 07/27 2300 50 07/27 2245 97.8 48 20 118/68 92 Room Air 07/27 2104 130/68 07/27 1558 97.6 60 20 120/80 99 07/27 1145 Room Air 07/27 0857 65 164/70 07/27 0857 65 164/70 Intake & Output 07/28 0800 07/28 0000 07/27 1600 Intake Total 400 1400 Output Total 550 300 Balance -355 770 7359 Intake, Oral 400 1400 Number 1 3 2 Bowel Movements Output, 150 Drainage Output, Urine 400 300 Physical Exam General Appearance: no apparent distress, alert, comfortable Head: normal appearance Cardiovascular: regular rate/rhythm, normal peripheral pulses Respiratory: normal breath sounds, no respiratory distress, decreased breath sounds Abdomen: normal bowel sounds, soft, non-tender, Hyperactive bowel sounds Extremities: 1+ pitting edema. The left heel is covered in an JELLY bandage with scant dried blood. Slightly malodorous. The wound vacc is in place, containing 150cc of dark red serous fluid Current Medications: Current Medications Sig/Little Start time Last Medication Dose Route Stop Time Status Admin Acetaminophen 650 MG .STK-MED ONE 07/27 1935 DC PO 07/27 1936 Acetaminophen 650 MG .STK-MED ONE 07/27 1436 DC PO 07/27 1437 Acetaminophen 650 MG .STK-MED ONE 07/27 0850 DC PO 07/27 0851 Acetaminophen 650 MG Q4P PRN 07/24 1730 AC 07/27 PO 2058 Allopurinol 300 MG DAILY 07/25 1000 AC 07/27 PO 0857 Amlodipine Besylate 5 MG DAILY 07/25 1000 AC 07/27 PO 0857 Calcium Carbonate 500 MG BID 07/25 2200 AC 07/27 PO 2058 Clonidine 0.1 MG BID 07/24 2200 AC 07/27 PO 210 Clopidogrel Bisulfate 75 MG DAILY 07/25 1000 AC 07/27 PO 0857 Dextrose/Sodium 1,000 ML Q13H 07/28 0800 AC 07/28 Chloride IV 0701 Furosemide 10 MG Q48H 07/25 1000 AC 07/27 PO 0900 Heparin Sodium 5,000 UNIT Q8 07/25 2200 DC 07/27 (Porcine) SC 2104 Insulin Aspart 0 TIDAC 07/25 1700 DC 07/27 SC 1344 Insulin Human Regular 0 Q6 07/27 2359 AC 07/28 SC 0701 Levothyroxine Sodium 0.025 MG DAILY AC 07/25 0700 AC 07/27 PO 0637 Magnesium Oxide 400 MG BID 07/25 2200 AC 07/27 PO 2057 Nystatin 1 JUAN JOSE TID PRN 07/27 0930 AC TOP Pregabalin 300 MG BID 07/24 2200 AC 07/27 PO 2058 Results Last 24 Hrs Lab/Radu Results: Microbiology 07/28 0645 STOOL: Clostridium difficile Toxin A & B - RECD
[2016-07-28 07:39] VITALS: BP 112/70
--- NOTE | 2016-07-28 13:58 | PN- Podiatry ---
Subjective Subjective: Patient at bedside in no acute distress. Afebrile overnight. Objective Vital Signs and I&Os Vital Signs Date Time Temp Pulse Resp B/P Pulse O2 O2 Flow FiO2 Ox Delivery Rate 07/28 1114 53 112/70 07/28 1114 53 112/70 07/28 0739 98.9 53 20 112/70 93 Room Air 07/27 2300 50 07/27 2245 97.8 48 20 118/68 92 Room Air 07/27 2104 130/68 07/27 1558 97.6 60 20 120/80 99 Intake & Output 07/28 1600 07/28 0800 07/28 0000 07/27 1600 07/27 0800 07/27 0000 Intake Total 400 1400 100 100 Output Total 550 300 600 Balance -240 219 9157 100 -500 Intake, Oral 400 1400 100 100 Number 1 3 2 Bowel Movements Output, 150 Drainage Output, Urine 400 300 600 Physical Exam: Dressing to left foot clean dry and intact. Wound VAC in place with 150 mL of serosanguineous drainage noted to the canister. Assessment/Plan Assessment/Plan Nonhealing ulceration with likely osteomyelitis left heel. We'll defer surgery until Sunday tendon the pathology findings. Core Measures/Miscellaneous Venous Thromboembolism VTE Risk Factors: Age > 40, Immobility, paresis, Surgery VTE Contraindications: No Contraindications VTE Diagnosis: No Beta Jesus Alberto Is Beta Jesus Alberto a Home Med? No If Yes, Was This Ordered Today? No Antibiotics Is Patient on Antibiotics? No Attending MD Review Statement Attending Statement Attending MD Statement: examined this patient
[2016-07-28 14:34] VITALS: BP 110/74
[2016-07-28 22:50] VITALS: BP 110/56
[2016-07-29 07:26] VITALS: BP 126/64
--- NOTE | 2016-07-29 13:18 | PN- Podiatry ---
Subjective Subjective: Patient seen at bedside with no new complaints. Afebrile overnight. Objective Vital Signs and I&Os Vital Signs Date Time Temp Pulse Resp B/P Pulse O2 O2 Flow FiO2 Ox Delivery Rate 07/30 851 57 130/70 07/30 851 57 130/70 07/29 08 Room Air 07/29 07 98.3 55 20 126/64 95 Room Air 07/28 2250 98.3 60 20 110/56 97 Room Air 07/28 1434 97.6 60 18 110/74 99 Nasal 2.0L Cannula Intake & Output 07/29 1600 07/29 0807/29 0000 07/28 1600 07/28 0807/28 0000 Intake Total 100 390 400 Output Total 150 20 550 Balance -50 370 -550 400 Intake, IV 0 150 Intake, Oral 100 240 400 Number 0 2 1 3 Bowel Movements Output, 20 150 Drainage Output, Urine 150 400 Physical Exam: VAC in place with 200 cc of serosanguinous drainage noted to the canister. Assessment/Plan Assessment/Plan Osteomyelitis left heel with peripheral arterial disease. F/u pathology. Pt to OR Sunday for angiography and further debridement vs grafting pending pathology. Core Measures/Miscellaneous Venous Thromboembolism VTE Risk Factors: Age > 40, Immobility, paresis, Surgery VTE Contraindications: No Contraindications VTE Diagnosis: No Beta Jesus Alberto Is Beta Jesus Alberto a Home Med? No If Yes, Was This Ordered Today? No Antibiotics Is Patient on Antibiotics? No Attending MD Review Statement Attending Statement Attending MD Statement: examined this patient
[2016-07-29 14:29] VITALS: BP 140/60
--- NOTE | 2016-07-29 20:50 | PN- Medicine Consult ---
Assessment/Plan Assessment/Plan Assessment: 80-year-old -[place] lady with a PMH of DM, HTN, hypothyroidism, seizure disorder tapered off Keppra, Chronic osteomyelitis of left heel ongoing 3 years , on suppressive doxycycline 100 mg PO Q 12 and cefuroxime 250 mg PO Q12 treated by Dr. Arredondo (infectious disease at [facility]), vitamin D deficiency, Stage III CKD, anemia who is currently being managed for her chronic osteomyelitis. Surgical history: Lumbar fusion with transpedicular screws in L2, L3, L5. Fusion at L4-L5 level. (2004). Angiogram of left lower extremity (05/24/2015): LLE angiogram with stenting of left superficial femoral artery (05/24/2015). Normal aorta and iliac arteries bilaterally. 70% calcified stenosis of the distal superficial femoral artery. Single-vessel runoff to the foot via the peroneal artery with collateralization to the posterior tibial artery. 7 mm 4 cm self-expanding stent placed and distal superficial femoral artery with 0% residual stenosis Bilateral lower extremity arterial Doppler (07/26/2016): There is disease present in the left anterior tibial artery and the dorsalis pedis on the left could not be imaged. On the right, there is decrease flow in the dorsalis pedis. Nowhere present is monophasic flow or areas of significant velocity accelerations. Patient underwent I&D of the site with biopsies obtained on 07/25/2016 with negative cultures thus far Problem list: 1. Osteomyelitis of the left heel 2. Diarrhea 3. Asymptomatic bradycardia 4. Peripheral artery disease 5. Diabetes 6. Hypertension 7. Hypothyroidism 8. Stage III chronic kidney disease 9. Gout 10. Seizure in the setting of hypomagnesemia and hypocalcemia 11. History of provoked DVT/PE spinal surgery Plan: * Patient remains hemodynamically stable thus far, afebrile, no evidence of leukocytosis As per cardiology, agree with obtaining lipid panel and initiating statin tx due to PAD. Rest of the plan as per Podiatry and Vascular surgery. Subjective Subjective: reports doing OK, no fever/chills/nausea or vomiting Objective Last 24 Hrs of Vital Signs/I&O Vital Signs Date Time Temp Pulse Resp B/P Pulse O2 O2 Flow FiO2 Ox Delivery Rate 07/29 1429 97.9 67 20 140/60 96 Room Air 07/29 0852 57 130/70 07/29 08 57 130/70 07/29 0800 Room Air 07/29 0726 98.3 55 20 126/64 95 Room Air 07/28 2250 98.3 60 20 110/56 97 Room Air Intake & Output 07/29 1600 07/29 0800 07/29 0000 Intake Total 820 100 390 Output Total 50 150 20 Balance 770 -50 370 Intake, IV 140 0 150 Intake, Oral 680 100 240 Number 0 Bowel Movements Output, 50 20 Drainage Output, Urine 150 Physical Exam General Appearance: no apparent distress, alert, awake, comfortable Cardiovascular: regular rate/rhythm Respiratory: normal breath sounds, no respiratory distress Abdomen: soft, non-tender Current Medications: Current Medications Sig/Little Start time Last Medication Dose Route Stop Time Status Admin Acetaminophen 1,000 MG .STK-MED ONE 07/29 08 DC IV 07/29 08 Acetaminophen 1,000 MG Q6P PRN 07/28 0800 AC 07/29 N/A 1 UNIT IV 0914 Acetaminophen 650 MG Q4P PRN 07/24 1730 AC 07/29 PO 1825 Allopurinol 300 MG DAILY 07/25 1000 AC 07/29 PO 0851 Amlodipine Besylate 5 MG DAILY 07/25 1000 AC 07/29 PO 0852 Calcium Carbonate 500 MG BID 07/25 2200 AC 07/29 PO 0852 Clonidine 0.1 MG BID 07/24 2200 AC 07/29 PO 0852 Clopidogrel Bisulfate 75 MG DAILY 07/25 1000 AC 07/29 PO 0851 Furosemide 10 MG Q48H 07/25 1000 AC 07/29 PO 0852 Heparin Sodium 5,000 UNIT Q8 07/28 1400 AC 07/29 (Porcine) SC 1408 Insulin Aspart 0 TIDAC 07/28 1200 AC 07/29 SC 1754 Levothyroxine Sodium 0.025 MG DAILY AC 07/25 0700 AC 07/29 PO 0641 Magnesium Oxide 400 MG BID 07/25 2200 AC 07/29 PO 0851 Nystatin 1 JUAN JOSE TID PRN 07/27 0930 AC TOP Pregabalin 150 MG .STK-MED ONE 07/29 08 DC PO 07/29 0811 Pregabalin 150 MG .STK-MED ONE 07/29 0808 DC PO 07/29 0809 Pregabalin 300 MG BID 07/24 2200 AC 07/29 PO 0913 Results Last 24 Hrs Lab/Radu Results: reviewd Attending MD Review Statement Attending Sign Off Attending Cosign Statement: I have: examined this patient, reviewed aval EMR data.
[2016-07-29 21:54] VITALS: BP 138/60
[2016-07-30 07:41] VITALS: BP 98/50
--- NOTE | 2016-07-30 10:16 | PN- Medicine Consult ---
Assessment/Plan Assessment/Plan Assessment: 80-year-old -[place] lady with a PMH of DM, HTN, hypothyroidism, seizure disorder tapered off Keppra, Chronic osteomyelitis of left heel ongoing 3 years , on suppressive doxycycline 100 mg PO Q 12 and cefuroxime 250 mg PO Q12 treated by Dr. Arredondo (infectious disease at [facility]), vitamin D deficiency, Stage III CKD, anemia who is currently being managed for her chronic osteomyelitis. Surgical history: Lumbar fusion with transpedicular screws in L2, L3, L5. Fusion at L4-L5 level. (2004). Angiogram of left lower extremity (05/24/2015): LLE angiogram with stenting of left superficial femoral artery (05/24/2015). Normal aorta and iliac arteries bilaterally. 70% calcified stenosis of the distal superficial femoral artery. Single-vessel runoff to the foot via the peroneal artery with collateralization to the posterior tibial artery. 7 mm 4 cm self-expanding stent placed and distal superficial femoral artery with 0% residual stenosis Bilateral lower extremity arterial Doppler (07/26/2016): There is disease present in the left anterior tibial artery and the dorsalis pedis on the left could not be imaged. On the right, there is decrease flow in the dorsalis pedis. Nowhere present is monophasic flow or areas of significant velocity accelerations. Patient underwent I&D of the site with biopsies obtained on 07/25/2016 with negative cultures thus far Problem list: 1. Osteomyelitis of the left heel 2. Diarrhea 3. Asymptomatic bradycardia 4. Peripheral artery disease 5. Diabetes 6. Hypertension 7. Hypothyroidism 8. Stage III chronic kidney disease 9. Gout 10. Seizure in the setting of hypomagnesemia and hypocalcemia 11. History of provoked DVT/PE spinal surgery Plan: * Patient remains hemodynamically stable thus far, afebrile, no evidence of leukocytosis No new labs today. Recommend obtaining lipid panel and initiating statin tx due to PAD. Rest of the plan as per Podiatry and Vascular surgery. Subjective Subjective: No overnight issues reported Review of Systems Constitutional: Denies: no symptoms, see HPI. Objective Last 24 Hrs of Vital Signs/I&O Vital Signs Date Time Temp Pulse Resp B/P Pulse O2 O2 Flow FiO2 Ox Delivery Rate 07/30 0858 58 100/70 07/30 0858 58 100/70 07/30 0741 97.6 53 20 98/50 95 Room Air 2154 97.9 52 22 138/60 94 07/29 2056 138/60 07/29 1429 97.9 67 20 140/60 96 Room Air Intake & Output 07/30 1600 / 0800 07/30 0000 Intake Total 50 450 Output Total 160 Balance 50 290 Intake, IV 0 Intake, Oral 50 450 Number 1 Bowel Movements Output, 10 Drainage Output, Urine 150 Physical Exam General Appearance: well developed/nourished, no apparent distress, alert Cardiovascular: regular rate/rhythm Abdomen: normal bowel sounds, soft Neurologic/Psychiatric: alert, oriented x 3 Current Medications: Current Medications Sig/Little Start time Last Medication Dose Route Stop Time Status Admin Acetaminophen 1,000 MG Q6P PRN 07/28 0800 AC 07/29 N/A 1 UNIT IV 0914 Acetaminophen 650 MG Q4P PRN 07/24 1730 AC 07/29 PO 1825 Allopurinol 300 MG DAILY 07/25 1000 AC 07/30 PO 0859 Amlodipine Besylate 5 MG DAILY 07/25 1000 AC 07/30 PO 0858 Calcium Carbonate 500 MG BID 07/25 2200 AC 07/30 PO 0859 Clonidine 0.1 MG BID 07/24 2200 AC 07/30 PO 0858 Clopidogrel Bisulfate 75 MG DAILY 07/25 1000 AC 07/30 PO 0858 Dextrose/Sodium 1,000 ML Q20H / 0200 CAN Chloride IV 07/31 2159 Dextrose/Sodium 1,000 ML Q20H / 0200 AC Chloride IV / 2159 Furosemide 10 MG Q48H 07/25 1000 AC 07/29 PO 0852 Heparin Sodium 5,000 UNIT Q8 07/28 1400 AC 07/30 (Porcine) SC 0633 Insulin Aspart 0 TIDAC 07/28 1200 AC 07/30 SC 07/31 0600 0859 Insulin Human Regular 0 Q6 07/31 0600 AC SC Levothyroxine Sodium 0.025 MG DAILY AC 07/25 0700 AC 07/30 PO 0632 Magnesium Oxide 400 MG BID 07/25 2200 AC 07/30 PO 0858 Nystatin 1 JUAN JOSE TID PRN 07/27 0930 AC TOP Pregabalin 300 MG BID 07/24 2200 AC 07/30 PO 0859 Results Last 24 Hrs Lab/Radu Results: no new labs today
[2016-07-30 14:14] VITALS: BP 110/60
--- NOTE | 2016-07-30 17:16 | PN- Podiatry ---
Subjective Subjective: Patient seen at bedside in no acute distress. Patient afebrile overnight. Patient does admit to 3 episodes of diarrhea over the past 24 hours. No belly pain associated with her episodes. Objective Vital Signs and I&Os Vital Signs Date Time Temp Pulse Resp B/P Pulse O2 O2 Flow FiO2 Ox Delivery Rate 07/30 1414 98.0 65 20 110/60 98 Nasal 2.0L Cannula 07/30 08 58 100/70 07/30 0858 58 100/70 07/30 0741 97.6 53 20 98/50 95 Room Air 07/294 97.9 52 22 138/60 94 07/30 2055 138/60 Intake & Output 07/30 1600 07/30 0800 07/30 0000 07/29 1600 07/29 0000 Intake Total 710 50 450 820 100 390 Output Total 630 160 50 150 20 Balance 80 50 290 770 -50 370 Intake, IV 10 0 140 0 150 Intake, Oral 700 50 450 680 100 240 Number 5 1 0 Bowel Movements Output, 30 10 50 20 Drainage Output, Urine 600 150 150 Physical Exam: VAC in place. 200 cc of serosanguineous drainage of the canister. No pain with deep palpation bilateral lower extremities. Assessment/Plan Assessment/Plan Nonhealing ulcer left heel with likely osteomyelitis. Patient nothing by mouth past midnight for angiography and further debridement versus skin grafting left heel tomorrow. Core Measures/Miscellaneous Venous Thromboembolism VTE Risk Factors: Age > 40, Immobility, paresis, Surgery VTE Contraindications: No Contraindications VTE Diagnosis: No Beta Jesus Alberto Is Beta Jesus Alberto a Home Med? No If Yes, Was This Ordered Today? No Antibiotics Is Patient on Antibiotics? No Attending MD Review Statement Attending Statement Attending MD Statement: examined this patient
[2016-07-30 22:05] VITALS: BP 110/70
--- NOTE | 2016-07-31 06:28 | PN- Medicine Consult ---
MACK FITZPATRICK 07/31/16 0627: Assessment/Plan Assessment/Plan Assessment: 80-year-old -[place]ong[place] lady with a PMH of DM, HTN, hypothyroidism, seizure disorder tapered off Keppra, Chronic osteomyelitis of left heel ongoing 3 years , on suppressive doxycycline 100 mg PO Q 12 and cefuroxime 250 mg PO Q12 treated by Dr. Arredondo (infectious disease at [facility]), vitamin D deficiency, Stage III CKD, anemia who is currently being managed for her chronic osteomyelitis. Surgical history: Lumbar fusion with transpedicular screws in L2, L3, L5. Fusion at L4-L5 level. (2004). Angiogram of left lower extremity (05/24/2015): LLE angiogram with stenting of left superficial femoral artery (05/24/2015). Normal aorta and iliac arteries bilaterally. 70% calcified stenosis of the distal superficial femoral artery. Single-vessel runoff to the foot via the peroneal artery with collateralization to the posterior tibial artery. 7 mm 4 cm self-expanding stent placed and distal superficial femoral artery with 0% residual stenosis Bilateral lower extremity arterial Doppler (07/26/2016): There is disease present in the left anterior tibial artery and the dorsalis pedis on the left could not be imaged. On the right, there is decrease flow in the dorsalis pedis. Nowhere present is monophasic flow or areas of significant velocity accelerations. Patient underwent I&D of the site with biopsies obtained on 07/25/2016 with negative cultures thus far Problem list: 1. Osteomyelitis of the left heel 2. Diarrhea: negative cdiff 3. Asymptomatic bradycardia 4. Peripheral artery disease 5. Diabetes 6. Hypertension 7. Hypothyroidism 8. Stage III chronic kidney disease 9. Gout 10. Seizure in the setting of hypomagnesemia and hypocalcemia 11. History of provoked DVT/PE spinal surgery Plan: Plan: 1. Osteomyelitis of the left heel * Plan to go to the operating room today for bone flap simultaneous angiogram * Bone culture remains negative * We'll follow-up with weightbearing status 2. Diarrhea: Previously on suppressive therapy with cefuroxime and doxycycline for osteomyelitis * Stool culture for C. difficile negative * The symptoms could be secondary to the magnesium supplementation started a few days ago * Discontinuing mag supplementation. Continue loperamide and monitor for resolution of symptoms * If symptoms do continue, consider stool C. difficile PCR 3. Asymptomatic bradycardia * Currently not on any AV danielle blocking agents. TFTs within normal limits. * Stable at this time 4. Peripheral artery disease * Plan for angiogram today with vascular surgeon Dr. Boogie * We'll discuss need to start the patient on statin * Continue Plavix 75 mg daily 5. Diabetes * Currently on NPO sliding scale, D5 half-normal saline at 50 mL an hour * We'll restart Low-dose sliding scale, consistent carbohydrate 3 diet s/p OR procedure today 6. Hypertension * Blood pressure has remained borderline low over the past 2 days. We can attribute this to the diarrhea over the past 72 hours * We'll consider decreasing the amlodipine dosed 2.5 mg daily * Will check Orthostatics later this evening 7. Hypothyroidism * Continue levothyroxine 0.025 mg daily 8. Stage III chronic kidney disease * Stable 9. Gout * Continue allopurinol 300 mg daily 10. Seizure in the setting of hypomagnesemia and hypocalcemia * We'll follow magnesium and calcium levels this morning and supplement as warranted * Discontinued mag ox supplementation in the setting of diarrhea 11. History of provoked DVT/PE spinal surgery * Heparin 5000 units subcutaneous daily for DVT prophylaxis Problem List: 1. Chronic osteomyelitis of hindfoot 2. Diarrhea 3. Bradycardia 4. DM (diabetes mellitus) 5. HTN (hypertension) Subjective Subjective: Interval history: The patient reports feeling fine this morning. She did have multiple episodes of diarrhea yesterday but denies any fever or chills. Review of Systems Constitutional: Reports: see HPI. EENTM: Reports: no symptoms. Cardiovascular: Reports: no symptoms. Respiratory: Reports: no symptoms. Gastrointestinal: Reports: see HPI. Musculoskeletal: Reports: no symptoms. Objective Last 24 Hrs of Vital Signs/I&O Vital Signs Date Time Temp Pulse Resp B/P Pulse O2 O2 Flow FiO2 Ox Delivery Rate 07/31 0655 98.7 57 20 100/62 96 Room Air 07/30 2205 98.1 82 20 110/70 96 07/30 2101 60 110/70 07/30 1738 98 Room Air / 1414 98.0 65 20 110/60 98 Nasal 2.0L Cannula / 0858 58 100/70 04/02 0858 58 100/70 /02 0741 97.6 53 20 98/50 95 Room Air Intake & Output 07/31 0800 04/03 0000 07/30 1600 Intake Total 700 710 Output Total 25 630 Balance 675 80 Intake, IV 10 Intake, Oral 700 700 Number 2 5 Bowel Movements Output, 25 30 Drainage Output, Urine 600 Physical Exam General Appearance: no apparent distress, alert, awake, comfortable Head: atraumatic, normal appearance Ears, Nose, Throat: hearing grossly normal Cardiovascular: regular rate/rhythm Respiratory: normal breath sounds, no respiratory distress, lungs clear Abdomen: normal bowel sounds, soft, non-tender Extremities: normal range of motion, 1+ pitting edema BL LE. Stable Current Medications: Current Medications Sig/Little Start time Last Medication Dose Route Stop Time Status Admin Acetaminophen 650 MG .STK-MED ONE 07/30 1846 DC PO 07/30 1847 Acetaminophen 650 MG .STK-MED ONE 07/30 1053 DC PO 07/30 1054 Acetaminophen 1,000 MG Q6P PRN 07/28 0800 AC 07/29 N/A 1 UNIT IV 0914 Acetaminophen 650 MG Q4P PRN 07/24 1730 AC 07/30 PO 1850 Allopurinol 300 MG DAILY 07/25 1000 AC 07/30 PO 0859 Amlodipine Besylate 5 MG DAILY 07/25 1000 AC 07/30 PO 0858 Calcium Carbonate 500 MG BID 07/25 2200 AC 07/30 PO 2101 Clonidine 0.1 MG BID 07/24 2200 AC 07/30 PO 2101 Clopidogrel Bisulfate 75 MG DAILY 07/25 1000 AC 07/30 PO 0858 Dextrose/Sodium 1,000 ML Q20H / 0200 CAN Chloride IV 07/31 2159 Dextrose/Sodium 1,000 ML Q20H 07/31 0200 AC 07/31 Chloride IV 07/31 2159 0130 Furosemide 10 MG Q48H 07/25 1000 AC 07/29 PO 0852 Heparin Sodium 5,000 UNIT Q8 07/28 1400 AC 07/31 (Porcine) SC 0639 Insulin Aspart 0 TIDAC 07/28 1200 DC 07/30 SC 07/31 0600 1659 Insulin Human Regular 0 Q6 07/31 0600 AC 07/31 SC 0644 Levothyroxine Sodium 0.025 MG DAILY AC 07/25 0700 AC 07/31 PO 0639 Loperamide HCl 2 MG Q6P PRN 07/30 1245 AC 07/30 PO 2013 Magnesium Oxide 400 MG BID 07/25 2200 DC 07/30 PO 2101 Nystatin 1 JUAN JOSE TID PRN 07/27 0930 AC TOP Pregabalin 300 MG .STK-MED ONE 07/30 0852 DC PO 07/30 0853 Pregabalin 300 MG BID 07/24 2200 AC 07/30 PO 2100 Results Last 24 Hrs Lab/Radu Results: Laboratory Tests 07/31/16 0624: Sodium Pending, Potassium Pending, Chloride Pending, Carbon Dioxide Pending, Anion Gap Pending, BUN Pending, Creatinine Pending, BUN/Creatinine Ratio Pending , PT Pending, INR Pending, CBC w Diff Pending, WBC Pending, RBC Pending, Hgb Pending, Hct Pending, MCV Pending, MCH Pending, RDW Pending, Plt Count Pending, MPV Pending, PUBS MCHC Pending MUNIR HENRY MD 07/31/16 1412: Attending MD Review Statement Attending Sign Off Attending Cosign Statement: I have: examined this patient, reviewed [facility] EMR data, personally reviewd images, discussd w/resident/PA/CIVIL DESIGN TECHNICIAN, discussed mgmt plan w/jake, discussed mgmt plan w/pt, agreed w/resident/PA/CIVIL DESIGN TECHNICIAN, amended to note. Other Findings: Patient seen and examined in, came back from her surgery which included angiogram as well as debridement of the left foot and heel. Doing well at this point. Vital Signs Date Time Temp Pulse Resp B/P Pulse O2 O2 Flow FiO2 Ox Delivery Rate 07/31 1413 97.4 81 20 130/90 97 Room Air 07/31 1349 89 130/68 07/31 1300 97.4 89 18 130/68 98 Room Air 07/31 0655 98.7 57 20 100/62 96 Room Air 07/31 0000 96 Room Air 07/30 2205 98.1 82 20 110/70 96 07/30 2101 60 110/70 07/30 1738 98 Room Air on exam; aox3, nad. cv; s1,s2, rrr resp; clear abd; soft, nt, bs+ ext; no edema, + prateek wrap and wound vac on left foot. Laboratory Tests 08/01 623 Chemistry Sodium (137 - 145 mmol/L) 144 Potassium (3.5 - 5.1 mmol/L) 4.8 Chloride (98 - 107 mmol/L) 109 H Carbon Dioxide (22 - 30 mmol/L) 26 Anion Gap (5 - 16) 9 BUN (7 - 17 mg/dL) 48 H Creatinine (0.5 - 1.0 mg/dL) 1.5 H Estimated GFR (>60 ml/min) 34 L BUN/Creatinine Ratio (7 - 25 %) 32.0 H Calcium (8.4 - 10.2 mg/dL) 9.9 Magnesium (1.6 - 2.3 mg/dL) 2.2 Coagulation PT (9.4 - 12.5 SEC) 11.6 INR (0.90 - 1.19) 1.11 Hematology CBC w Diff NO MAN DIFF REQ WBC (4.8 - 10.8 /CUMM) 8.1 RBC (4.20 - 5.40 /CUMM) 3.61 L Hgb (12.0 - 16.0 G/DL) 10.5 L Hct (37 - 47 %) 32.5 L MCV (81.0 - 99.0 FL) 90.2 MCH (27.0 - 31.0 PG) 29.2 RDW (11.5 - 14.5 %) 17.2 H Plt Count (130 - 400 /CUMM) 252 MPV (7.4 - 10.4 FL) 10.2 Gran % (42.2 - 75.2 %) 58.3 Lymphocytes % (20.5 - 51.1 %) 32.8 Monocytes % (1.7 - 9.3 %) 4.7 Eosinophils % (0 - 5 %) 3.7 Basophils % (0.0 - 2.0 %) 0.5 Absolute Granulocytes (1.4 - 6.5 /CUMM) 4.7 Absolute Lymphocytes (1.2 - 3.4 /CUMM) 2.6 Absolute Monocytes (0.10 - 0.60 /CUMM) 0.4 Absolute Eosinophils (0.0 - 0.7 /CUMM) 0.3 Absolute Basophils (0.0 - 0.2 /CUMM) 0 PUBS MCHC (33.0 - 37.0 G/DL) 32.4 L A/P; 80 y/o F withpmh sig for DM, HTN, hypothyroidism, seizure disorder tapered off Keppra, Chronic osteomyelitis of left heel ongoing 3 years, on suppressive doxycycline 100 mg PO Q 12 and cefuroxime 250 mg PO Q12 treated by Dr. Arredondo ( infectious disease at [facility]), vitamin D deficiency, Stage III CKD, anemia who was admitted with the left foot osteomyelitis L status post angiogram as well as debridement of the left foot necrotic wound and he'll osteomyelitis. Patient had developed some diarrhea. C. difficile is negative and she was started out of [place]. Continue paranoid but if continues to have diarrhea then would recommend sending C. difficile PCR. She also has a slight bump in her creatinine. We will watch that. I will avoid nephrotoxins. Gentle IV hydration. If her blood pressure continues to run low, decrease clonidine to 0.05 mg twice a day. I was also told that she had some bradycardia which could be related to clonidine. DC her Mag Ox and if magnesium needs to be repeated that it should be done IV. Please check for Dr. Dixon if antibiotics are indicated. DVT prophylaxis: Heparin subcutaneous. Activity status per Dr. Dixon.
[2016-07-31 06:55] VITALS: BP 100/62
[2016-07-31 08:03] LABS: ABSOLUTE BASOPHIL COUNT 0 /CUMM (0.0-0.2); ABSOLUTE EOSINOPHIL COUNT 0.3 /CUMM (0.0-0.7); ABSOLUTE GRANULOCYTE CT 4.7 /CUMM (1.4-6.5); ABSOLUTE LYMPH COUNT 2.6 /CUMM (1.2-3.4); ABSOLUTE MONOCYTE COUNT 0.4 /CUMM (0.10-0.60); BASOPHIL % 0.5 % (0.0-2.0); EOSINOPHIL % 3.7 % (0-5); GRANULOCYTE % 58.3 % (42.2-75.2); HEMATOCRIT 32.5 % (37-47); MEAN CORPUSCULAR HGB 29.2 PG (27.0-31.0); MEAN CORPUSCULAR HGB CONC 32.4 G/DL (33.0-37.0); MEAN CORPUSCULAR VOLUME 90.2 FL (81.0-99.0); MEAN PLATELET VOLUME 10.2 FL (7.4-10.4); PLATELET COUNT 252 /CUMM (130-400); RBC DISTRIBUTION WIDTH 17.2 % (11.5-14.5); RED BLOOD CELL CT 3.61 /CUMM (4.20-5.40); WHITE BLOOD CELL COUNT 8.1 /CUMM (4.8-10.8)
[2016-07-31 08:18] LABS: PT 11.6 SEC (9.4-12.5)
--- NOTE | 2016-07-31 11:13 | Operative Report ---
Operative/Inv Procedure Report Surgery Date: 07/31/16 Name of Procedure: 1 incision and drainage deep to the deep fascia with exposure of the flexor tendon tendon sheath multiple sites left heel 2 bone biopsy with debridement left calcaneus 3 intraoperative administration of negative pressure wound therapy 4 intraoperative administration of ankle block anesthesia 5 excisional debridement Pre-Operative Diagnosis: 1 open necrotic wound left foot 2 osteomyelitis left heel 3 peripheral arterial disease Post-Operative Diagnosis: The same Estimated Blood Loss: less than 50ml Surgeon/Ski Lift Attendant: OJ MARQUIS DPM Anesthesia: moderate sedation, block Operative/Procedure Note Note: After obtaining informed consent the patient was brought to the operating room and placed on the operating table in the supine position. The patient isn't securely fastened to the operating table utilizing safety belt. After administration of IV sedation, 10 mL of 0.5% Marcaine plain was infiltrated about the patient's left heel. The patient was intubated and the vascular service performed an angiography. Following this, the left lower extremity was scrubbed prepped and draped in the usual aseptic manner. Attention directed plantar aspect of the left heel, where a 8 cm x 8 cm full-thickness necrotic was identified. A 15 blade was utilized sharply revised skin margins. He dissection was then carried down deep to the D fashion with exposure of the flexor tendon tension multiple sites both proximally and distally. All necrotic nonviable infected tissue sharply evacuated from the wound bed. Dissection was then carried down to the periosteum overlying the calcaneus which is incised reflected. Specimen was harvested for both microbiologic and pathologic inspection. The open wound was then irrigated with 3 L of normal sterile saline infusion 50,000 units of bacitracin. Following this, the foot was redraped and the surgeon's top gloves were changed clean gloves. Any bleeding vessels identified were cauterized or ligated as encountered. Negative pressure wound therapy was then applied followed by Kerlix and an Hua wrap. The patient was noted to tolerate both procedure and anesthesia well and the patient was transported from the operating room to recovery with vital signs stable.
--- NOTE | 2016-07-31 11:28 | RADIOLOGY REPORT ---
EXAMINATION: XR TIBIA AND FIBULA, LEFT CLINICAL INFORMATION: Left leg arteriogram in OR. COMPARISON: None TECHNIQUE/FINDINGS: Fluoroscopic equipment was dedicated to the operating room for the performance of a left leg arteriogram. 19 fluoroscopic runs were performed and are archived in PACS for review. Please refer to operative notes for assessment. This is an administrative dictation only. FLUOROSCOPY TIME: 26.33 minutes. IMPRESSION: Administrative dictation for left leg arteriogram performed in the OR.
[2016-07-31 13:00] VITALS: BP 130/68
[2016-07-31 14:13] VITALS: BP 130/90
[2016-07-31 21:41] VITALS: BP 120/80
--- NOTE | 2016-08-01 06:58 | PN- Medicine Consult ---
MACK FITZPATRICK 08/01/16 0658: Assessment/Plan Assessment/Plan Assessment: 80-year-old -Citizen Of [place] lady with a PMH of DM, HTN, hypothyroidism, seizure disorder tapered off Keppra, Chronic osteomyelitis of left heel ongoing 3 years , on suppressive doxycycline 100 mg PO Q 12 and cefuroxime 250 mg PO Q12 treated by Dr. Arredondo (infectious disease at [facility]), vitamin D deficiency, Stage III CKD, anemia who is currently being managed for her chronic osteomyelitis. Surgical history: Lumbar fusion with transpedicular screws in L2, L3, L5. Fusion at L4-L5 level. (2004). Angiogram of left lower extremity (05/24/2015): LLE angiogram with stenting of left superficial femoral artery (05/24/2015). Normal aorta and iliac arteries bilaterally. 70% calcified stenosis of the distal superficial femoral artery. Single-vessel runoff to the foot via the peroneal artery with collateralization to the posterior tibial artery. 7 mm 4 cm self-expanding stent placed and distal superficial femoral artery with 0% residual stenosis Bilateral lower extremity arterial Doppler (07/26/2016): There is disease present in the left anterior tibial artery and the dorsalis pedis on the left could not be imaged. On the right, there is decrease flow in the dorsalis pedis. Nowhere present is monophasic flow or areas of significant velocity accelerations. Patient underwent I&D of the site with biopsies obtained on 07/25/2016 with negative cultures thus far Problem list: 1. Osteomyelitis of the left heel 2. Diarrhea: negative cdiff 3. Pain management 4. Asymptomatic bradycardia 5. PAD 6. Diabetes 7. Attention 8. Hypothyroidism 9. Stage III chronic kidney disease 10. Gout 11. Previous seizure in the setting of hypomagnesemia and hypocalcemia 12. History of provoked DVT s/p spinal surgery Plan: Plan: 1. Osteomyelitis of the left heel * Patient underwent repeat I&D deep to the deep fascia with exposure of the flexor tendon tendon sheath multiple sites of the left heel. Full biopsy with debridement of the left calcaneus. Intraoperative administration of negative pressure wound VAC therapy () * Bone cultures pending * We'll follow-up with weightbearing status * He'll follow up with Dr. Dixon on anticipated return to OR 2. Diarrhea: Previously on suppressive therapy with cefuroxime and doxycycline for osteomyelitis * Diarrhea has resolved over the past 24 hours. This likely was secondary to the magnesium supplementation was discontinued on 07/31/2016 * Patient only required 2 doses of 2loperamide * If symptoms do occur, will send stool C. difficile PCR 3. Pain management * Patient reports that her pain seems to escalate whenever she falls asleep and is unable to receive the Tylenol * We'll schedule Tylenol 650 mg Q4 over the next 24 hours to maintain appropriate analgesia and then transitioned back to PRN 4. Asymptomatic bradycardia * Resolved 5. Peripheral artery disease * Started patient on atorvastatin 40 mg daily * Will ffollow up with vascular surgeon Dr. Boogie * Continue Plavix 75 mg daily 6. Diabetes * Accu-Cheks 116 through 330 over the past 24 hours * Continue with consistent carbohydrate 3 diet, low-dose sliding scale 7. Hypertension * Blood pressure remained stable * Continue with amlodipine 5 mg daily, clonidine 0.1 mg BID * Will check Orthostatics later this AM 8. Hypothyroidism * Continue levothyroxine 0.025 mg daily 9. Stage III chronic kidney disease * We'll repeat renal function in the a.m. tomorrow. If any worsening/evidence of orthostatic hypotension, would consider NS 1L X1 10. Gout * Continue allopurinol 300 mg daily 11. Seizure in the setting of hypomagnesemia and hypocalcemia * Magnesium and calcium levels stable at this time * We'll recheck in 24-48 hours 12. History of provoked DVT/PE spinal surgery * Heparin 5000 units subcutaneous daily for DVT prophylaxis Problem List: 1. Chronic osteomyelitis of hindfoot 2. Diarrhea 3. Bradycardia 4. Pain management 5. HTN (hypertension) 6. DM (diabetes mellitus) 7. PAD (peripheral artery disease) 8. CKD (chronic kidney disease) Subjective Subjective: Interval history: There are no major events overnight. The patient went to the operating room yesterday where she had I&D deep to the deep fascia, exposure of the flexor tendon multiple sites of the left heel. Bone biopsy with debridement of the left calcaneus. She reports resolution of the diarrhea and denies any fever, chills, abdominal pain overnight. Patient does report that the pain in her left heel has increased over the past few hours. Review of Systems Constitutional: Reports: see HPI. EENTM: Reports: no symptoms. Cardiovascular: Reports: no symptoms. Respiratory: Reports: no symptoms. Gastrointestinal: Reports: see HPI. Musculoskeletal: Reports: see HPI. Objective Last 24 Hrs of Vital Signs/I&O Vital Signs Date Time Temp Pulse Resp B/P Pulse O2 O2 Flow FiO2 Ox Delivery Rate 08/01 0723 99.1 60 18 118/80 95 Room Air / 2141 98.9 66 18 120/80 95 Room Air 07/31 2059 66 120/80 07/31 1413 97.4 81 20 130/90 97 Room Air 07/31 1349 89 130/68 07/31 1300 97.4 89 18 130/68 98 Room Air Intake & Output 08/01 0800 08/01 0000 07/31 1600 Intake Total 100 600 400 Output Total 5 1325 550 Balance 95 -725 -150 Intake, Oral 100 600 400 Number 0 Bowel Movements Output, 5 25 Drainage Output, Urine 1300 550 Physical Exam General Appearance: no apparent distress, comfortable Head: normal appearance Ears, Nose, Throat: hearing grossly normal Cardiovascular: regular rate/rhythm, normal peripheral pulses Respiratory: normal breath sounds, quiet respiration, lungs clear Abdomen: normal bowel sounds, soft, non-tender Extremities: 1+ pitting edema bilateral lower extremities. The left heel is covered in a clean Hua bandage with no evidence of bleeding/drainage from the site this time. Skin: left heel is covered in a clean Hua bandage attached to the wound VAC. Approximately 50 mL serosanguineous drainage Current Medications: Current Medications Sig/Little Start time Last Medication Dose Route Stop Time Status Admin Acetaminophen 650 MG .STK-MED ONE 08/01 2047 DC PO 07/31 2048 Acetaminophen 650 MG .STK-MED ONE 07/31 170 DC PO 07/31 1710 Acetaminophen 1,000 MG Q6P PRN 07/28 0800 AC 07/29 N/A 1 UNIT IV 0914 Acetaminophen 650 MG Q4P PRN 07/24 1730 AC 07/31 PO 210 Allopurinol 300 MG DAILY 07/25 1000 AC 07/31 PO 134 Amlodipine Besylate 5 MG DAILY 07/25 1000 AC 07/31 PO 134 Atorvastatin Calcium 40 MG 1700 07/31 1700 AC 07/31 PO 171 Calcium Carbonate 500 MG BID 07/250 AC 07/31 PO 2058 Clonidine 0.1 MG BID 07/24 2199 AC 07/31 PO 2058 Clopidogrel Bisulfate 75 MG DAILY 07/25 1000 AC 07/31 PO 1349 Dextrose/Sodium 1,000 ML Q20H 07/31 0200 DC 07/31 Chloride IV 07/31 2159 0130 Furosemide 10 MG Q48H 07/25 1000 AC 07/29 PO 0852 Heparin Sodium 5,000 UNIT Q8 07/28 1400 AC 08/01 (Porcine) SC 0552 Insulin Aspart 0 TIDAC/HS 07/31 2215 AC 07/31 SC 2251 Insulin Aspart 0 TIDAC 07/31 1230 DC 07/31 SC 1752 Insulin Human Regular 0 Q6 07/31 0600 DC 07/31 SC 0644 Levothyroxine Sodium 0.025 MG DAILY AC 07/25 0700 AC 08/01 PO 0547 Loperamide HCl 2 MG Q6P PRN 07/30 1245 AC 07/30 PO 2013 Nystatin 1 JUAN JOSE TID PRN 07/27 0930 AC TOP Patient Medication 1 ED .STK-MED ONE 07/31 1344 DC Teaching ED 07/31 1345 Pregabalin 300 MG BID 07/24 2200 AC 07/31 PO 2059 Results Last 24 Hrs Lab/Radu Results: Microbiology 07/31 1045 EXTREMITIE: Gross Specimen Examination - RECD 07/31 104 EXTREMITIE: Gram Stain - RECJessy HENRY MD,[facility] 08/01/16 1338: Attending MD Review Statement Attending Sign Off Attending Cosign Statement: I have: examined this patient, reviewed [facility] EMR data, personally reviewd images, discussd w/resident/PA/INK PRINTER, discussed mgmt plan w/jake, discussed mgmt plan w/pt, agreed w/resident/PA/INK PRINTER, amended to note. Other Findings: Patient seen and examined, did complain of some pain in the left foot. She status post debridement of the left necrotic wound as well as heel. She now has a wound VAC. Wound cultures from yesterday growing gram-positive cocci. The obtain infectious disease consult and Pop Telles MD recommending to follow off antibiotics. I also discussed with Dr. Dixon who plans to take patient to or again sometime in near future for the skin graft. Bone pathology from July 26 shows no osteomyelitis. Continue all other current medications. Blood pressure and heart rate is stable. For DVT prophylaxis she is on heparin subcutaneous. Please check her chemistries in the morning to make sure that her creatinine is stable. Diarrhea has improved. Thank you will continue to follow.
[2016-08-01 07:23] VITALS: BP 118/80
[2016-08-01 11:44] VITALS: BP 120/60
--- NOTE | 2016-08-01 12:35 | Cons- Infect Disease ---
General Information and HPI Consulting Request Date of Consult: 08/01/16 Requested By: OJ MARQUIS DPM Reason for Consult: Rule out osteomyelitis left heel Source of Information: patient History of Present Illness: This is a 80-year-old woman with a history of diabetes, chronic renal insufficiency, peripheral vascular disease, status post left SFA stenting at [facility] over 2 months prior to admission, with a chronic nonhealing left heel ulcer for several years, maintained on Doxycycline and Cefuroxime for at least the past 2 years by Angel Lyon, an infectious disease physician in [place], admitted on July 24 for debridement of the soft tissues and bone biopsy, which were performed on July 25. On admission she was afebrile, with a white blood cell count of 10,000. She was followed off antibiotics. She was evaluated by Vascular surgery and, on July 31, she was taken back to the OR for debridement of the bone, placement of a wound VAC and an angiogram, with further details regarding any vascular surgery intervention not available. She has remained afebrile with a normal white blood cell count off antibiotics since admission. She does note pain in the left heel, which has been chronic, but offers no other complaints at this time. Allergies/Medications Allergies: Coded Allergies: Penicillins (Severe, SWELLING 07/24/16) adhesive (Intermediate, RASH 07/24/16) Past History Medical History Blood Transfusion Hx: Yes Neurological: seizure EENT: NONE Cardiovascular: hypertension, PVD Respiratory: NONE Gastrointestinal: NONE Hepatic: NONE Renal: NONE Musculoskeletal: osteoarthritis Psychiatric: NONE Endocrine: diabetes, hypothyroidism Blood Disorders: DVT Cancer(s): NONE SOIL TESTER/Reproductive: NONE History of MRSA: No History of VRE: No History of CDIFF: No Isolation History: Standard Influenza Vaccine: 12/28/15 Surgical History Surgical History: R TOE AMPUTATION, L HEEL DEBRIDEMENT SPINAL FUSION Family History Relations & Conditions If Any: FATHER, ; Cause: Myocardial infarct, old. Psychosocial History Where Do You Live? Home Who Do You Live With? self Primary Language: Wolof Smoking Status: Former Smoker ETOH Use: denies use Illicit Drug Use: denies illicit drug use Functional Ability ADLs Independent: dressing, eating, toileting, bathing. IADLs Independent: shopping, housework, finances, food prep, telephone, transportation , medication admin. Review of Systems Review of Systems All Other Systems: Reviewed and Negative Exam & Diagnostic Data Last 24 Hrs of Vital Signs/I&O Vital Signs Date Time Temp Pulse Resp B/P Pulse O2 O2 Flow FiO2 Ox Delivery Rate 08/01 1144 84 120/60 08/01 0842 95 112/70 08/01 0841 112/7 08/01 0723 99.1 60 18 118/80 95 Room Air 07/31 2141 98.9 66 18 120/80 95 Room Air 07/31 2059 66 120/80 07/31 1413 97.4 81 20 130/90 97 Room Air 07/31 1349 89 130/68 07/31 1300 97.4 89 18 130/68 98 Room Air Intake & Output 08/01 1600 08/01 0800 08/01 0000 Intake Total 100 600 Output Total 5 1325 Balance 95 -725 Intake, Oral 100 600 Number 0 Bowel Movements Output, 5 25 Drainage Output, Urine 1300 Physical Exam Other Physical Findings: She is awake and alert in no acute distress. She is afebrile. Skin reveals no rash. HEENT exam is negative. Neck is supple with no adenopathy. Lungs are clear. Heart regular rhythm with no murmur. Abdomen is soft, nontender with positive bowel sounds. Back no CVA tenderness. Extremities left foot wound VAC in place; status post amputation of the right fifth toe; 1+ pulses in the right foot; no cyanosis, clubbing or edema of the lower extremities. Neuro is without focality. Last 24 Hours of Lab Results: Laboratory Tests 07/31 0624 Chemistry Sodium (137 - 145 mmol/L) 144 Potassium (3.5 - 5.1 mmol/L) 4.8 Chloride (98 - 107 mmol/L) 109 H Carbon Dioxide (22 - 30 mmol/L) 26 Anion Gap (5 - 16) 9 BUN (7 - 17 mg/dL) 48 H Creatinine (0.5 - 1.0 mg/dL) 1.5 H Estimated GFR (>60 ml/min) 34 L BUN/Creatinine Ratio (7 - 25 %) 32.0 H Calcium (8.4 - 10.2 mg/dL) 9.9 Magnesium (1.6 - 2.3 mg/dL) 2.2 Coagulation PT (9.4 - 12.5 SEC) 11.6 INR (0.90 - 1.19) 1.11 Hematology CBC w Diff NO MAN DIFF REQ WBC (4.8 - 10.8 /CUMM) 8.1 RBC (4.20 - 5.40 /CUMM) 3.61 L Hgb (12.0 - 16.0 G/DL) 10.5 L Hct (37 - 47 %) 32.5 L MCV (81.0 - 99.0 FL) 90.2 MCH (27.0 - 31.0 PG) 29.2 RDW (11.5 - 14.5 %) 17.2 H Plt Count (130 - 400 /CUMM) 252 MPV (7.4 - 10.4 FL) 10.2 Gran % (42.2 - 75.2 %) 58.3 Lymphocytes % (20.5 - 51.1 %) 32.8 Monocytes % (1.7 - 9.3 %) 4.7 Eosinophils % (0 - 5 %) 3.7 Basophils % (0.0 - 2.0 %) 0.5 Absolute Granulocytes (1.4 - 6.5 /CUMM) 4.7 Absolute Lymphocytes (1.2 - 3.4 /CUMM) 2.6 Absolute Monocytes (0.10 - 0.60 /CUMM) 0.4 Absolute Eosinophils (0.0 - 0.7 /CUMM) 0.3 Absolute Basophils (0.0 - 0.2 /CUMM) 0 PUBS MCHC (33.0 - 37.0 G/DL) 32.4 L Last 24 Hours of Radu Results: OR culture July 25 labeled left heel bone negative OR culture July 31 labeled left heel bone positive for scant growth of gram positive cocci Stool C. difficile July 28 negative Diagnostic Data Recent Imaging Findings: Left heel x-ray July 25 revealed erosion and sclerosis of the underlying calcaneus, suggestive of chronic osteomyelitis Arterial Dopplers both lower extremities July 26 reveal disease in the left anterior tibial artery; decreased flow in the right dorsalis pedis Assessment/Plan Assessment/Plan Impression: This is a 80-year-old woman with diabetes, peripheral vascular disease, status post left leg angiogram with left SFA stenting over 2 months prior to admission, with a chronic nonhealing left heel ulcer, maintained on 2 oral antibiotics for at least 2 years, admitted on July 24 for debridement of the soft tissues of the left heel and bone biopsy, which was negative for osteomyelitis, now status post debridement of the bone and angiogram yesterday. Her history is suggestive of chronic osteomyelitis, as was her initial x-ray, though her bone biopsy was negative. This could be in part secondary to the antibiotics she was on up until admission, though not clear this would have affected the pathology. The significance of the repeat bone culture is unclear, with just a scant growth of gram-positive cocci isolated and will need to await this final culture and pathology. As she is stable she can continue to be followed off antibiotics. I am concerned that she has not healed her ulcer and suspect that she may ultimately require a BKA, but will discuss further with vascular surgery regarding her vascular status. Suggestion: 1. Follow-up recent OR bone culture and pathology 2. Will discuss with Vascular surgery details regarding her recent angiogram and vascular status 3. Continue to follow off antibiotics pending above Consult Acknowledgment - Thank you for your consult request.
[2016-08-01 14:05] VITALS: BP 120/60
--- NOTE | 2016-08-01 14:54 | PN- Podiatry ---
Subjective Subjective: Patient seen at bedside with no acute complaints. Patient does, however, admit to some left heel pain. This is relieved with IV Tylenol. Patient denies nausea vomiting fever chills. Objective Vital Signs and I&Os Vital Signs Date Time Temp Pulse Resp B/P Pulse O2 O2 Flow FiO2 Ox Delivery Rate 08/01 1405 97.0 84 18 120/60 97 Nasal 2.0L Cannula 08/01 1144 84 120/60 08/01 0842 95 112/70 08/01 0841 112/7 08/01 0723 99.1 60 18 118/80 95 Room Air 07/31 2141 98.9 66 18 120/80 95 Room Air 07/31 2059 66 120/80 Intake & Output 08/01 1600 08/01 0800 08/01 0000 07/31 1600 07/31 0807/31 0000 Intake Total 100 600 400 250 700 Output Total 800 5 1325 550 25 Balance -800 95 -725 -150 250 675 Intake, IV 250 Intake, Oral 100 600 400 0 700 Number 0 0 2 Bowel Movements Output, 5 25 25 Drainage Output, Urine 800 1300 550 Physical Exam: Dressing left foot clean dry and intact. Wound VAC in place with approximately 50 mL of serosanguineous drainage noted to the canister. No pain with deep palpation bilateral lower extremity's. Assessment/Plan Assessment/Plan Nonhealing ulcer left heel. Given that the patient has a negative pathology, will proceed with skin grafting on or Sunday. Awaiting ID recommendations for perioperative antibiotic coverage. Core Measures/Miscellaneous Venous Thromboembolism VTE Risk Factors: Age > 40, Immobility, paresis, Surgery VTE Contraindications: No Contraindications VTE Diagnosis: No Beta Jesus Alberto Is Beta Jesus Alberto a Home Med? No If Yes, Was This Ordered Today? No Antibiotics Is Patient on Antibiotics? No Attending MD Review Statement Attending Statement Attending MD Statement: examined this patient
[2016-08-01 22:00] VITALS: BP 124/50
[2016-08-02 07:15] VITALS: BP 134/60
--- NOTE | 2016-08-02 07:35 | PN- Medicine Consult ---
MACK FITZPATRICK 08/02/16 0735: Assessment/Plan Assessment/Plan Assessment: 80-year-old -[place] lady with a PMH of DM, HTN, hypothyroidism, seizure disorder tapered off Keppra, Chronic osteomyelitis of left heel ongoing 3 years , on suppressive doxycycline 100 mg PO Q 12 and cefuroxime 250 mg PO Q12 treated by Dr. Arredondo (infectious disease at [facility]), vitamin D deficiency, Stage III CKD, anemia who is currently being managed for her chronic osteomyelitis. Surgical history: Lumbar fusion with transpedicular screws in L2, L3, L5. Fusion at L4-L5 level. (2004). Angiogram of left lower extremity (05/24/2015): LLE angiogram with stenting of left superficial femoral artery (05/24/2015). Normal aorta and iliac arteries bilaterally. 70% calcified stenosis of the distal superficial femoral artery. Single-vessel runoff to the foot via the peroneal artery with collateralization to the posterior tibial artery. 7 mm 4 cm self-expanding stent placed and distal superficial femoral artery with 0% residual stenosis Bilateral lower extremity arterial Doppler (07/26/2016): There is disease present in the left anterior tibial artery and the dorsalis pedis on the left could not be imaged. On the right, there is decrease flow in the dorsalis pedis. Nowhere present is monophasic flow or areas of significant velocity accelerations. Patient underwent I&D of the site with biopsies obtained on 07/25/2016 with negative cultures thus far Problem list: 1. Osteomyelitis of the left heel 2. Diarrhea: negative cdiff 3. Pain management 4. Asymptomatic bradycardia 5. PAD 6. Diabetes 7. Hypertension 8. Hypothyroidism 9. Stage III chronic kidney disease 10. Gout 11. Previous seizure in the setting of hypomagnesemia and hypocalcemia 12. History of provoked DVT s/p spinal surgery Plan: Plan: 1. Osteomyelitis of the left heel * OR culture # (+) for GPC. Potential contaminant. Hemodynamically stable, afebrile and normal white count. Per recommendations from ID, will continue to monitor off antibiotics * We'll follow-up with weightbearing status 2. Diarrhea: Previously on suppressive therapy with cefuroxime and doxycycline for osteomyelitis * Resolved. We'll continue to monitor 3. Pain management * Continue with Tylenol PRN 4. Asymptomatic bradycardia * Stable at this time 5. Peripheral artery disease * Continue on atorvastatin 40 mg daily * Will follow up with vascular surgeon Dr. Boogie * Continue Plavix 75 mg daily 6. Diabetes * Accu-Cheks 200 through 259 over the past 24 hours * Continue with consistent carbohydrate 3 diet, low-dose sliding scale 7. Hypertension * Blood pressure remains stable * Continue with amlodipine 5 mg daily, clonidine 0.1 mg BID 8. Hypothyroidism * Continue levothyroxine 0.025 mg daily 9. Stage III chronic kidney disease * Interval improvement in renal function: Creatinine 1.3 down from 1.5 yesterday. We'll continue to monitor and avoid nephrotoxic agents 10. Gout * Continue allopurinol 300 mg daily 11. Seizure in the setting of hypomagnesemia and hypocalcemia * Magnesium pending * Calcium pending 12. History of provoked DVT/PE spinal surgery * Heparin 5000 units subcutaneous daily for DVT prophylaxis Problem List: 1. Chronic osteomyelitis of hindfoot 2. PAD (peripheral artery disease) 3. Bradycardia 4. DM (diabetes mellitus) 5. HTN (hypertension) 6. CKD (chronic kidney disease) 7. Pain management Subjective Subjective: Interval history: There are no major events overnight. This morning the patient states that she was able to sleep almost the night without any discomfort. She reports resolution of diarrhea and better control of the pain in her left heel. She denies any fevers, chills, nausea, abdominal pain, chest pain, palpitations or shortness of breath. Review of Systems Constitutional: Reports: see HPI. EENTM: Reports: no symptoms. Cardiovascular: Reports: no symptoms. Respiratory: Reports: no symptoms. Gastrointestinal: Reports: see HPI. Musculoskeletal: Reports: see HPI. Objective Last 24 Hrs of Vital Signs/I&O Vital Signs Date Time Temp Pulse Resp B/P Pulse O2 O2 Flow FiO2 Ox Delivery Rate 08/02 1030 Room Air 08/02 1028 Room Air 08/02 0852 58 132/60 08/02 0715 97.5 64 20 134/60 96 Room Air 08/01 2200 97.7 50 20 124/50 95 Room Air 08/01 2104 50 124/50 08/01 1405 97.0 84 18 120/60 97 Nasal 2.0L Cannula 08/01 1144 84 120/60 Intake & Output 08/02 1600 08/02 0800 08/02 0000 Intake Total 100 100 Output Total 500 Balance -400 100 Intake, Oral 100 100 Output, Urine 500 Physical Exam General Appearance: alert, comfortable Head: normal appearance Ears, Nose, Throat: hearing grossly normal Cardiovascular: regular rate/rhythm, normal peripheral pulses Respiratory: normal breath sounds, no respiratory distress, lungs clear Abdomen: normal bowel sounds, soft, non-tender Extremities: 1+ pitting edema BL LE Skin: Left heel covered in a clean JELLY bandage. Wound vacc secure at this time Current Medications: Current Medications Sig/Little Start time Last Medication Dose Route Stop Time Status Admin Acetaminophen 500 MG Q4P PRN 08/01 0751 AC 08/02 PO 1831 Allopurinol 300 MG DAILY 07/25 1000 AC 08/02 PO 0853 Amlodipine Besylate 5 MG DAILY 07/25 1000 AC 08/02 PO 0853 Atorvastatin Calcium 40 MG 1700 07/31 1700 AC 08/02 PO 1653 Calcium Carbonate 500 MG .STK-MED ONE 08/028 DC PO 08/02 2209 Calcium Carbonate 500 MG BID 07/25 2200 AC 08/02 PO 2216 Clonidine 0.1 MG BID 07/24 2200 AC 08/02 PO 2217 Clopidogrel Bisulfate 75 MG DAILY 07/25 1000 AC 08/02 PO 0853 Dextrose/Sodium 1,000 ML Q13H 08/03 0800 AC Chloride IV Furosemide 10 MG Q48H 07/25 1000 AC 08/02 PO 0852 Heparin Sodium 5,000 UNIT Q8 07/28 1400 AC 08/02 (Porcine) SC 2216 Insulin Aspart 0 TIDAC/HS 08/03 0800 AC SC Insulin Aspart 0 TIDAC/HS 07/31 2215 DC 08/02 SC 2232 Levothyroxine Sodium 0.025 MG DAILY AC 07/25 0700 AC 08/02 PO 0618 Loperamide HCl 2 MG Q6P PRN 07/30 1245 AC 07/30 PO 2013 Nystatin 1 JUAN JOSE TID PRN 07/27 0930 AC 08/02 TOP 0854 Patient Medication 1 ED .STK-MED ONE 08/02 1327 DC Teaching ED 08/02 1328 Pregabalin 300 MG BID 07/24 2200 AC 08/02 PO 2216 Results Last 24 Hrs Lab/Radu Results: Laboratory Tests 08/02/16 0600: Anion Gap 5, Estimated GFR 40 L, BUN/Creatinine Ratio 32.3 H, CBC w Diff NO MAN DIFF REQ, RBC 3.03 L, MCV 90.2, MCH 28.8, RDW 17.5 H, MPV 10.5 H, Gran % 53.9, Lymphocytes % 33.4, Monocytes % 7.2, Eosinophils % 4.8, Basophils % 0.7, Absolute Granulocytes 4.4, Absolute Lymphocytes 2.7, Absolute Monocytes 0.6, Absolute Eosinophils 0.4, Absolute Basophils 0.1, PUBS MCHC 31.9 L CARL ALEX,[facility] 08/02/16 1011: Attending MD Review Statement Attending Sign Off Attending Cosign Statement: I have: examined this patient, reviewed avalbl EMR data, personally reviewd images, discussd w/resident/PA/[employer] READING TEACHER, discussed mgmt plan w/jake, discussed mgmt plan w/CM, discussed mgmt plan w/pt, agreed w/resident/PA/[employer] GR[employer] READING TEACHER, amended to note. Other Findings: Patient seen and examined, feels well at this time. Said that her pain is relatively well controlled. Patient will need a skin graft as per podiatry. Vital Signs Date Time Temp Pulse Resp B/P Pulse O2 O2 Flow FiO2 Ox Delivery Rate 08/02 0852 58 132/60 08/02 0715 97.5 64 20 134/60 96 Room Air 08/01 2200 97.7 50 20 124/50 95 Room Air 08/01 2104 50 124/50 08/01 1405 97.0 84 18 120/60 97 Nasal 2.0L Cannula 08/01 1144 84 120/60 on exam; aox3, nad. cv; s1,s2, rrr resp; clear abd; soft, nt, bs+ ext; no edema. skin; + jelly wrap on left foot. Laboratory Tests 08/02 0600 Chemistry Sodium (137 - 145 mmol/L) 141 Potassium (3.5 - 5.1 mmol/L) 4.7 Chloride (98 - 107 mmol/L) 110 H Carbon Dioxide (22 - 30 mmol/L) 26 Anion Gap (5 - 16) 5 BUN (7 - 17 mg/dL) 42 H Creatinine (0.5 - 1.0 mg/dL) 1.3 H Estimated GFR (>60 ml/min) 40 L BUN/Creatinine Ratio (7 - 25 %) 32.3 H Hematology CBC w Diff NO MAN DIFF REQ WBC (4.8 - 10.8 /CUMM) 8.1 RBC (4.20 - 5.40 /CUMM) 3.03 L Hgb (12.0 - 16.0 G/DL) 8.7 L Hct (37 - 47 %) 27.3 L MCV (81.0 - 99.0 FL) 90.2 MCH (27.0 - 31.0 PG) 28.8 RDW (11.5 - 14.5 %) 17.5 H Plt Count (130 - 400 /CUMM) 193 MPV (7.4 - 10.4 FL) 10.5 H Gran % (42.2 - 75.2 %) 53.9 Lymphocytes % (20.5 - 51.1 %) 33.4 Monocytes % (1.7 - 9.3 %) 7.2 Eosinophils % (0 - 5 %) 4.8 Basophils % (0.0 - 2.0 %) 0.7 Absolute Granulocytes (1.4 - 6.5 /CUMM) 4.4 Absolute Lymphocytes (1.2 - 3.4 /CUMM) 2.7 Absolute Monocytes (0.10 - 0.60 /CUMM) 0.6 Absolute Eosinophils (0.0 - 0.7 /CUMM) 0.4 Absolute Basophils (0.0 - 0.2 /CUMM) 0.1 PUBS MCHC (33.0 - 37.0 G/DL) 31.9 L Assessment and recommendations; 80 y/o F with pmh sig for DM, HTN, hypothyroidism, seizure disorder tapered off Keppra, Chronic osteomyelitis of left heel ongoing 3 years, on suppressive doxycycline 100 mg PO Q 12 and cefuroxime 250 mg PO Q12 treated by Dr. Arredondo ( infectious disease at [facility]), vitamin D deficiency, Stage III CKD, anemia who was admitted with the left foot osteomyelitis L status post angiogram as well as debridement of the left foot necrotic wound. Pathology report from July 26 is consistent with no osteomyelitis. Wound culture from the second debridement growing gram-positive cocci but it could just be a contaminant. Infectious disease consulted and the recommended to follow off of antibiotics. I discussed with Dr. Dixon yesterday. He plans to take patient to or again either tomorrow or [facility] for the skin graft. Patient's pain seemed to be reasonably controlled. Creatinine improved and H&H slightly dropped. We'll continue to monitor. No need to transfuse at this time. Blood sugars in acceptable range. DVT prophylaxis: Heparin subcutaneous. Thank you very much, we'll continue to follow along with you.
[2016-08-02 09:27] LABS: ABSOLUTE BASOPHIL COUNT 0.1 /CUMM (0.0-0.2); ABSOLUTE EOSINOPHIL COUNT 0.4 /CUMM (0.0-0.7); ABSOLUTE GRANULOCYTE CT 4.4 /CUMM (1.4-6.5); ABSOLUTE LYMPH COUNT 2.7 /CUMM (1.2-3.4); ABSOLUTE MONOCYTE COUNT 0.6 /CUMM (0.10-0.60); BASOPHIL % 0.7 % (0.0-2.0); EOSINOPHIL % 4.8 % (0-5); GRANULOCYTE % 53.9 % (42.2-75.2); MEAN CORPUSCULAR HGB 28.8 PG (27.0-31.0); MEAN CORPUSCULAR HGB CONC 31.9 G/DL (33.0-37.0); MEAN CORPUSCULAR VOLUME 90.2 FL (81.0-99.0); MEAN PLATELET VOLUME 10.5 FL (7.4-10.4); PLATELET COUNT 193 /CUMM (130-400); RBC DISTRIBUTION WIDTH 17.5 % (11.5-14.5); RED BLOOD CELL CT 3.03 /CUMM (4.20-5.40); WHITE BLOOD CELL COUNT 8.1 /CUMM (4.8-10.8)
[2016-08-02 09:42] LABS: HEMATOCRIT 27.3 % (37-47)
--- NOTE | 2016-08-02 14:47 | PN- Infect Dx ---
Subjective Subjective: Afebrile. She continues to complain of left heel discomfort Objective Last 24 Hrs of Vital Signs/I&O Vital Signs Date Time Temp Pulse Resp B/P Pulse O2 O2 Flow FiO2 Ox Delivery Rate 08/02 1030 Room Air 08/02 1028 Room Air 08/02 0852 58 132/60 08/02 0715 97.5 64 20 134/60 96 Room Air 08/01 2200 97.7 50 20 124/50 95 Room Air 08/01 2104 50 124/50 Intake & Output 08/02 1600 08/02 0800 08/02 0000 Intake Total 300 100 100 Output Total 275 500 Balance 25 -400 100 Intake, Oral 300 100 100 Output, Urine 275 500 Physical Exam Other Physical Findings: She appears comfortable in no acute distress Extremities left heel dressing intact with wound VAC in place Results Last 24 Hours of Lab Results: Laboratory Tests 08/02 0600 Chemistry Sodium (137 - 145 mmol/L) 141 Potassium (3.5 - 5.1 mmol/L) 4.7 Chloride (98 - 107 mmol/L) 110 H Carbon Dioxide (22 - 30 mmol/L) 26 Anion Gap (5 - 16) 5 BUN (7 - 17 mg/dL) 42 H Creatinine (0.5 - 1.0 mg/dL) 1.3 H Estimated GFR (>60 ml/min) 40 L BUN/Creatinine Ratio (7 - 25 %) 32.3 H Calcium (8.4 - 10.2 mg/dL) 9.7 Phosphorus (2.5 - 4.5 mg/dL) 4.8 H Magnesium (1.6 - 2.3 mg/dL) 2.0 Hematology CBC w Diff NO MAN DIFF REQ WBC (4.8 - 10.8 /CUMM) 8.1 RBC (4.20 - 5.40 /CUMM) 3.03 L Hgb (12.0 - 16.0 G/DL) 8.7 L Hct (37 - 47 %) 27.3 L MCV (81.0 - 99.0 FL) 90.2 MCH (27.0 - 31.0 PG) 28.8 RDW (11.5 - 14.5 %) 17.5 H Plt Count (130 - 400 /CUMM) 193 MPV (7.4 - 10.4 FL) 10.5 H Gran % (42.2 - 75.2 %) 53.9 Lymphocytes % (20.5 - 51.1 %) 33.4 Monocytes % (1.7 - 9.3 %) 7.2 Eosinophils % (0 - 5 %) 4.8 Basophils % (0.0 - 2.0 %) 0.7 Absolute Granulocytes (1.4 - 6.5 /CUMM) 4.4 Absolute Lymphocytes (1.2 - 3.4 /CUMM) 2.7 Absolute Monocytes (0.10 - 0.60 /CUMM) 0.6 Absolute Eosinophils (0.0 - 0.7 /CUMM) 0.4 Absolute Basophils (0.0 - 0.2 /CUMM) 0.1 PUBS MCHC (33.0 - 37.0 G/DL) 31.9 L Last 24 Hours of Radu Results: OR culture July 31 left heel bone positive for Enterococcus sensitive to Ampicillin and gram negative rods Assessment/Plan Impression: Stable status post debridement of the left calcaneus 2 days ago for possible osteomyelitis, with initial bone biopsy negative, but with the repeat bone culture, obtained during the recent debridement, positive for Enterococcus and gram-negative rods. It is not clear if this just represents contamination from the more superficial tissues and can await the results of the repeat bone biopsy. The initial bone biopsy was negative, but this could have been secondary to antibiotics that she was on up until admission. Suggestion: 1. Follow-up final OR bone culture and pathology 2. Continue to follow off antibiotics pending above
[2016-08-02 14:49] VITALS: BP 118/58
--- NOTE | 2016-08-02 17:01 | Operative Report ---
Operative/Inv Procedure Report Surgery Date: 07/31/16 Name of Procedure: - Ultrasound-guided right common femoral artery access Pre-Operative Diagnosis: Nonhealing left heel wound Post-Operative Diagnosis: Same Estimated Blood Loss: scant Surgeon/Alarm Service Technician: Jah Boogie M.D. Anesthesia: laryngeal mask airway Operative/Procedure Note Note: 80-year-old lady with chronic nonhealing left heel wound who was shown to have tibial disease by arterial ultrasound. The patient was scheduled for left leg angiogram with possible interventions. The nature of the procedure including its possible complications including but not limited to bleeding, infection, blood clots, injury to vessels, and need for re-intervention were discussed. An informed consent was obtained. Patient was taken to the operating room and placed supine on the table. A timeout was called according to the protocol. After satisfactory induction of anesthesia, the patient was prepped and draped in standard surgical fashion. Then using an ultrasound, right common femoral artery was accessed using micropuncture technique. A Bentson wire was advanced into the aorta under direct fluoroscopic guidance. The micropuncture sheath was exchanged with a short 5 [place] sheath. An Omni flush catheter was advanced over the wire and placed into the abdominal aorta. From this position, an aortogram was performed with findings outlined below. Then with the aid of the Omni flush catheter and the Aguilar wire, the left iliac artery system was selected. The Omni flush catheter was exchanged with a 5 [place] glide catheter. The catheter was advanced over the wire and placed into the proximal left common femoral artery. From this position , left leg angiogram was performed with findings outlined below. The long Aguilar wire was then advanced into the glide catheter and placed into the distal SFA. The 5 [place] sheath was then exchanged with a 70 cm 6 [place] Jitendra sheath. The Jitendra sheath was advanced over the wire under direct fluoroscopic guidance and placed into the distal SFA. From this position, left leg angiogram was performed with findings outlined below. With the aid of a 014 victory wire and 014 angled quick cross catheter, I was able to advance the wire into the posterior tibial artery. However, the wire had a chronic total occlusion in the mid segment. The 014 support catheter I was not able to pass over the wire. The wire was not advancing any further. Then with the same 014 wire and catheter, I did cross into the anterior tibial artery. Again, there was an area of total occlusion in the mid section of the AT which I was unable to cross. The peroneal artery was widely patent from its origin all way down to the ankle. I decided to pull out the wires and catheters. The Jitendra sheath was exchanged with a short 6 [place] sheath. Then the puncture site was closed with Exoseal device. 5 minutes of manual pressure was applied to the right groin. Sterile dressing was applied. Patient was taken to the recovery room in stable condition. Radiographic findings: -Patent aorta with no significant disease -Patent bilateral common iliac, external iliac, and intracardiac arteries but no significant disease -Patent left common femoral and profunda femoris with no significant disease. SFA is patent from its origin with no significant disease. -Popliteal artery is patent with no significant disease. There tibial peroneal trunk is patent. Anterior tibial artery is patent from its origin with the severe disease the proximal segment. This artery shortly thereafter occludes and reconstitutes at the dorsalis pedis. The posterior tibial artery as a very tight stenosis from its origin and has diffuse chronic disease in the mid segment. This artery occludes in the distal segment and reconstitutes around the ankle.
--- NOTE | 2016-08-02 17:12 | PN- Podiatry ---
Subjective Subjective: Patient seen at bedside with no new complaints. Patient denies nausea vomiting fever chills. Objective Vital Signs and I&Os Vital Signs Date Time Temp Pulse Resp B/P Pulse O2 O2 Flow FiO2 Ox Delivery Rate 08/02 1449 97.6 53 20 118/58 96 08/02 1030 Room Air 08/02 1028 Room Air 08/02 0852 58 132/60 08/02 0715 97.5 64 20 134/60 96 Room Air 08/01 2200 97.7 50 20 124/50 95 Room Air 08/01 2104 50 124/50 Intake & Output 08/02 1600 08/02 0800 08/02 0000 08/01 1600 08/01 0800 08/01 0000 Intake Total 840 100 100 800 100 600 Output Total 425 500 805 5 1325 Balance 415 -400 100 -5 95 -725 Intake, IV 100 Intake, Oral 840 100 100 700 100 600 Number 0 Bowel Movements Output, 5 5 25 Drainage Output, Urine [phone] Physical Exam: Dressing left foot clean dry and intact. Wound VAC in place with approximately 80 mL of serosanguineous drainage noted. Assessment/Plan Assessment/Plan Nonhealing ulcer left foot. Patient to the OR tomorrow for split-thickness skin grafting. Core Measures/Miscellaneous Venous Thromboembolism VTE Risk Factors: Age > 40, Immobility, paresis, Surgery VTE Contraindications: No Contraindications VTE Diagnosis: No Beta Jesus Alberto Is Beta Jesus Alberto a Home Med? No If Yes, Was This Ordered Today? No Antibiotics Is Patient on Antibiotics? No Attending MD Review Statement Attending Statement Attending MD Statement: examined this patient
[2016-08-02 22:46] VITALS: BP 140/60
--- NOTE | 2016-08-03 07:27 | PN- Medicine Consult ---
MACK FITZPATRICK 08/03/16 0727: Assessment/Plan Assessment/Plan Assessment: 80-year-old -[place] lady with a PMH of DM, HTN, hypothyroidism, seizure disorder tapered off Keppra, Chronic osteomyelitis of left heel ongoing 3 years , on suppressive doxycycline 100 mg PO Q 12 and cefuroxime 250 mg PO Q12 treated by Dr. Arredondo (infectious disease at [facility]), vitamin D deficiency, Stage III CKD, anemia who is currently being managed for her chronic osteomyelitis. Past surgical history: Lumbar fusion with transpedicular screws in L2, L3, L5. Fusion at L4-L5 level. (2004). Previous angiogram 05/24/2015: LLE angiogram w/ stenting of L superficial femoral artery (05/24/2015). Normal aorta and iliac arteries bilaterally. 70% calcified stenosis of the distal superficial femoral artery. Single-vessel runoff to the foot via the peroneal artery with collateralization to the posterior tibial artery. 7 mm 4 cm self-expanding stent placed and distal superficial femoral artery with 0% residual stenosis BL LE arterial Doppler (07/26/2016): disease present in the left anterior tibial artery and the dorsalis pedis on the left could not be imaged. On the right, there is decrease flow in the dorsalis pedis. Nowhere present is monophasic flow or areas of significant velocity accelerations. I&D deep to the fascial exposure of the flexor tendon and tendon sheath, biopsies of left calcaneus on 07/25/2016: Negative cultures. Repeat I&D, biopsy and debridement of left calcaneus on 07/31/2016: > EXTREMITIES OR SPECIMEN Final 08/03/16-1110 1.SCANT GROWTH OF: ENTEROCOCCUS 2.GROWTH IN THIO BROTH : MORGANELLA MORGANII REPORTED TO FLAKITO. DEGL AT 0917 08/01/16 LAB.[facility] Enteroc M.morganii RX AB RX AB ------ -- ------ -- AMPICILLIN S R CEFAZOLIN R AMOX/CLAV AUGM R AMP/SULB-UNASYN R CEFOXITIN I CEFTAZIDIME S CEFTRIAXONE S CIPROFLOXACIN S GENTAMICIN S MEROPENEM S TRIMETH/SULFA S VANCOMYCIN S ENTEROCOCCUS: MICROSCAN GRAM POSITIVE PANEL Streptomycin Synergy Screen S Gentamicin Synergy Screen S 1. ENTEROCOCCUS RX AB ------ -- AMPICILLIN S VANCOMYCIN S Streptomycin Synergy Screen S Gentamicin Synergy Screen S 2. MORGANELLA MORGANII RX AB ------ -- AMPICILLIN R CEFAZOLIN R AMOXICILLIN/CLAVULINIC ACID R AMPICILLIN/SULBACTAM R CEFOXITIN I CEFTAZIDIME S CEFTRIAXONE S CIPROFLOXACIN S GENTAMICIN S MEROPENEM S TRIMETHOPRIM/SULFAMETHOXAZOLE S Ultrasound-guided right common femoral artery access on 07/31/2016. Found to have patent aorta no significant disease, patent BL common iliac, external iliac and intracardiac arteries with no significant disease. Patent L common femoral and profunda femoris with no significant disease. SFA is patent from its origin with no significant disease. Popliteal arteries patent and no significant disease. Tibial peroneal trunk is patent. Anterior tibial artery patent from its origin with a severe disease in the proximal segment. This artery shortly thereafter includes and reconstitutes at the dorsalis pedis. The posterior tibial artery has a very tight stenosis from its origin and has diffuse disease in the midsegment. This artery occludes in the distal segment and reconstitutes at the ankle. Problem list: 1. Osteomyelitis of the left calcaneus 2. GNR, enterococcus bone biopsy 3. Diarrhea 4. Asymptomatic bradycardia 5. PAD 6. Pain management 7. Diabetes 8. Hypertension 9. Hypothyroidism 10. Stage III chronic kidney disease 11. Gout 12. Previous seizure in the setting of hypomagnesemia and hypocalcemia 13. History of provoked DVT s/p spinal surgery Plan: Plan: 1. Osteomyelitis of the left heel: GNR, enterococcus positive bone biopsy * Return to the OR today for graft placement * We'll follow-up postprocedure weightbearing status * Currently off antibiotics. Will consult with ID based on latest culture positive for GNR, enterococcus * Hemodynamically stable, afebrile and normal white count 2. Diarrhea: * Prior to admission patient was on suppressive therapy with cefuroxime and doxycycline. Stool C. difficile was negative. Magnesium supplementation was discontinued * Resolved. We'll continue to monitor 3. Pain management * Continue with Tylenol PRN 4. Asymptomatic bradycardia * Noticeable bradycardia most of the hospitalization * Current regimen is clonidine 0.1 mg BID, amlodipine 5 mg daily * Repeat EKG today: Normal sinus rhythm, bradycardia. Normal TN and QTC intervals * TFTs within normal limits * Consulted with cardiology (Dr. Rousseau). Recommendations: * Discontinue amlodipine at this time. Stop clonidine 0.1 mg BID. To avoid rebound hypertension, will plan to taper off clonidine over 5 day period: 0.1 mg daily 3 days, 0.05 mg daily 2 days. Reintroduce amlodipine for blood pressure control at 2.5 mg and titrate up as tolerated 5. Peripheral artery disease * Continue on atorvastatin 40 mg daily * Will follow up with vascular surgeon Dr. Boogie * Continue Plavix 75 mg daily 6. Diabetes * Accu-Cheks 150 through 254 over the past 24 hours * NPO for OR today. D5 half NS @ 75/hr * NPO SS 7. Hypertension * Blood pressure remains stable * Continue with amlodipine 5 mg daily, clonidine 0.1 mg BID 8. Hypothyroidism * Continue levothyroxine 0.025 mg daily 9. Stage III chronic kidney disease * Interval improvement in renal function: Creatinine 1.3 * Recheck renal function Q48hrs * Repeat CBC today 10. Gout * Continue allopurinol 300 mg daily 11. Seizure in the setting of hypomagnesemia and hypocalcemia * Magnesium 2.0 yesterday * Calcium 9.7 yesterday 12. History of provoked DVT/PE spinal surgery * Heparin 5000 units subcutaneous daily for DVT prophylaxis Problem List: 1. Chronic osteomyelitis of hindfoot 2. PAD (peripheral artery disease) 3. Bradycardia 4. Diarrhea 5. DM (diabetes mellitus) 6. HTN (hypertension) 7. CKD (chronic kidney disease) Subjective Subjective: Interval history: There have been no acute events over the past 24hrs. Mrs Coelho denies any recurrence of diarrhea. The pain in her left heel is well -controlled. Patient denies any fevers, chills, abdominal pain. Review of Systems Constitutional: Reports: see HPI. EENTM: Reports: no symptoms. Cardiovascular: Reports: no symptoms. Respiratory: Reports: no symptoms. Gastrointestinal: Reports: see HPI. Genitourinary: Reports: no symptoms. Musculoskeletal: Reports: see HPI. Objective Last 24 Hrs of Vital Signs/I&O Vital Signs Date Time Temp Pulse Resp B/P Pulse O2 O2 Flow FiO2 Ox Delivery Rate 08/03 0733 98.1 50 20 108/60 97 Room Air 08/02 2246 97.4 54 20 140/60 92 Room Air 08/02 2217 54 140/60 08/02 1449 97.6 53 20 118/58 96 08/02 1030 Room Air 08/02 1028 Room Air 04/05 0852 58 132/60 Intake & Output 08/03 1600 08/03 0800 08/03 0000 Intake Total Output Total 160 Balance -160 Output, Urine 160 Physical Exam General Appearance: alert, comfortable Head: normal appearance Cardiovascular: normal peripheral pulses Respiratory: normal breath sounds, no respiratory distress, lungs clear Abdomen: normal bowel sounds, soft, non-tender Extremities: 1+ pitting edema BL LE, LLE slightly > RLE. Stable Current Medications: Current Medications Sig/Little Start time Last Medication Dose Route Stop Time Status Admin Acetaminophen 500 MG Q4P PRN 08/01 0751 AC 08/02 PO 1831 Allopurinol 300 MG DAILY 07/25 1000 AC 08/02 PO 0853 Amlodipine Besylate 5 MG DAILY 07/25 1000 AC 08/02 PO 0853 Atorvastatin Calcium 40 MG 1700 07/31 1700 AC 08/02 PO 1653 Calcium Carbonate 500 MG .STK-MED ONE 08/03 2207 DC PO 08/02 2209 Calcium Carbonate 500 MG BID 07/25 2200 AC 08/02 PO 2216 Clonidine 0.1 MG BID 07/24 2200 AC 08/02 PO 2217 Clopidogrel Bisulfate 75 MG DAILY 07/25 1000 AC 08/02 PO 0853 Dextrose/Sodium 1,000 ML Q13H 08/03 0800 AC 08/03 Chloride IV 0753 Furosemide 10 MG Q48H 07/25 1000 AC 08/02 PO 0852 Heparin Sodium 5,000 UNIT Q8 07/28 1400 AC 08/03 (Porcine) SC 0659 Insulin Aspart 0 TIDAC/HS 08/03 0800 CAN SC Insulin Aspart 0 TIDAC/HS 07/31 2215 DC 08/02 SC 2232 Insulin Human Regular 0 Q6 08/03 0620 AC SC Levothyroxine Sodium 0.025 MG DAILY AC 07/25 0700 AC 08/03 PO 0654 Loperamide HCl 2 MG Q6P PRN 07/30 1245 AC 07/30 PO 2013 Nystatin 1 JUAN JOSE TID PRN 07/27 0930 AC 08/02 TOP 0854 Patient Medication 1 ED .STK-MED ONE 08/02 1327 DC Teaching ED 08/02 1328 Pregabalin 300 MG BID 07/24 2200 AC 08/02 PO 2216 Results Last 24 Hrs Lab/Radu Results: wbc 7.5, h/h 9.5/29.3, platelet 214 CARL ALEX,MUNIR 08/03/16 1041: Attending MD Review Statement Attending Sign Off Attending Cosign Statement: I have: examined this patient, reviewed aval EMR data, personally reviewd images, discussd w/resident/PA/WAITER/[employer]ESS [employer], discussed mgmt plan w/flakito, discussed mgmt plan w/pt, agreed w/resident/PA/WAITER/[employer]RESS [employer], amended to note. Other Findings: Patient seen and examined, does not like her room. She wants to change the room. Otherwise denies any complaints. Patient is scheduled to go the OR today for the skin graft. Vital Signs Date Time Temp Pulse Resp B/P Pulse O2 O2 Flow FiO2 Ox Delivery Rate 08/03 0830 47 100/60 08/03 0830 47 100/60 08/03 0733 98.1 50 20 108/60 97 Room Air 08/02 2246 97.4 54 20 140/60 92 Room Air 08/02 2217 54 140/60 08/02 1449 97.6 53 20 118/58 96 on exam; aox3, nad. cv;s1,s2, rrr, bradycardia. resp; clear abd; soft, nt, bs+ ext; no edema skin; prateek wrap on left foot. no labs. Aseessment and recommendations: 80 y/o F with pmh sig for DM, HTN, hypothyroidism, seizure disorder tapered off Keppra, Chronic osteomyelitis of left heel ongoing 3 years, on suppressive doxycycline 100 mg PO Q 12 and cefuroxime 250 mg PO Q12 treated by Dr. Arredondo ( infectious disease at [facility]), vitamin D deficiency, Stage III CKD, anemia who was admitted with the left foot osteomyelitis L status post angiogram as well as debridement of the left foot necrotic wound. Pathology report from July 26 is consistent with no osteomyelitis. Wound culture from the second debridement growing enterococcus and GNR. Infectious disease consulted and so far recommended to follow off of antibiotics. Will discuss with Dr. Telles. Patient going to or again today for the skin grafting. Heart rate was low this morning. Will obtain EKG. Discussed with cardiology and they recommended decreasing the dose of her clonidine. Her clonidine, Lasix and amlodipine were held this morning secondary to having slightly low heart rate and blood pressure. We will reevaluate post procedure. Continue the rest of the medications. DVT prophylaxis: Heparin subcutaneous. Thank you, will continue to follow.
[2016-08-03 07:33] VITALS: BP 108/60
[2016-08-03 11:13] VITALS: BP 122/80
[2016-08-03 11:14] VITALS: BP 122/80
--- NOTE | 2016-08-03 11:59 | PN- Infect Dx ---
Subjective Subjective: Afebrile. She continues to note mild discomfort in the left heel. Objective Last 24 Hrs of Vital Signs/I&O Vital Signs Date Time Temp Pulse Resp B/P Pulse O2 O2 Flow FiO2 Ox Delivery Rate 08/03 1114 98.8 67 18 122/80 98 Room Air 08/03 1113 67 122/80 08/03 0830 47 100/60 / 0830 47 100/60 /06 0733 98.1 50 20 108/60 97 Room Air 08/02 2246 97.4 54 20 140/60 92 Room Air 08/02 2217 54 140/60 08/02 1449 97.6 53 20 118/58 96 Intake & Output 08/03 1600 08/03 0800 08/03 0000 Intake Total 0 Output Total 200 160 Balance -200 0 -160 Intake, IV 0 Intake, Oral 0 Number 0 Bowel Movements Output, Urine 200 160 Physical Exam Other Physical Findings: She appears comfortable in no acute distress Extremity left heel dressing intact, with wound VAC in place Results Last 24 Hours of Lab Results: Pathology of bone submitted July 31 reveals reactive changes with no evidence of osteomyelitis Last 24 Hours of Radu Results: OR culture left heel bone July 31 positive for Enterococcus sensitive to Ampicillin and Morganella sensitive to Ceftriaxone, Ceftazidime, Ciprofloxacin, Gentamicin, Meropenem and Bactrim Assessment/Plan Impression: Stable status post debridement of the left calcaneus 3 days ago, with bone biopsy again negative for osteomyelitis but with culture positive for Enterococcus and Morganella. This most likely represents contamination from the more superficial tissues given that the pathology does not suggest infection. Given these results do not feel she requires antibiotics; however, she can be given 1 dose of Meropenem as prophylaxis prior to the skin graft, which is scheduled for later today. Suggestion: 1. Await skin graft scheduled for later today 2. Can give Meropenem 1 g IV 1 prior to this procedure
[2016-08-03 14:10] VITALS: BP 140/70
[2016-08-03 16:11] LABS: ABSOLUTE BASOPHIL COUNT 0 /CUMM (0.0-0.2); ABSOLUTE EOSINOPHIL COUNT 0.4 /CUMM (0.0-0.7); ABSOLUTE GRANULOCYTE CT 4.1 /CUMM (1.4-6.5); ABSOLUTE LYMPH COUNT 2.4 /CUMM (1.2-3.4); ABSOLUTE MONOCYTE COUNT 0.5 /CUMM (0.10-0.60); BASOPHIL % 0.4 % (0.0-2.0); EOSINOPHIL % 5.1 % (0-5); GRANULOCYTE % 54.8 % (42.2-75.2); HEMATOCRIT 29.3 % (37-47); MEAN CORPUSCULAR HGB 29.3 PG (27.0-31.0); MEAN CORPUSCULAR HGB CONC 32.4 G/DL (33.0-37.0); MEAN CORPUSCULAR VOLUME 90.7 FL (81.0-99.0); PLATELET COUNT 214 /CUMM (130-400); RBC DISTRIBUTION WIDTH 17.5 % (11.5-14.5); RED BLOOD CELL CT 3.24 /CUMM (4.20-5.40); WHITE BLOOD CELL COUNT 7.5 /CUMM (4.8-10.8)
--- NOTE | 2016-08-03 19:58 | Operative Report ---
Operative/Inv Procedure Report Surgery Date: 08/03/16 Name of Procedure: 1 split-thickness skin graft left heel 2 negative pressure wound therapy left foot 3 intraoperative administration of ankle block anesthesia Pre-Operative Diagnosis: 1 nonhealing ulcer left heel Post-Operative Diagnosis: The same Estimated Blood Loss: scant Surgeon/Gum Puller: OJ MARQUIS DPM Anesthesia: moderate sedation, block Operative/Procedure Note Note: After obtaining informed consent the patient was brought to the operating room and placed on the operating table in the supine position. The patient was then securely fastened to the operating table utilizing a safety belt. After administration of IV sedation, 10 mL of 0.5% Marcaine plain was infiltrated about the patient's left ankle. Left foot and ankle within scrubbed prepped and draped in usual aseptic manner. Attention directed to the plantar aspect of left heel, where an 8 cm x 8 cm full-thickness lesion was identified. There was superficial slough overlying an otherwise granular wound bed. This was gently debrided with a curette. The wound was then irrigated with 3 L normal sterile saline infusion 50,000 units of bacitracin. Next, 1% lidocaine with epinephrine was infiltrated about the lateral leg and a 17 1000 of an inch split-thickness skin graft was elevated and meshed at a ratio of 1/2-1. It was then fixated into the wound bed with skin paige at the margins followed by Adaptic and negative pressure wound therapy. The donor site was dressed with bacitracin Xeroform Kerlix and Coban. The patient was noted to tolerate both procedure and anesthesia well and the patient was transported from the operating room to recovery with vital signs stable.
[2016-08-03 20:32] VITALS: BP 140/68
--- NOTE | 2016-08-04 06:50 | PN- Medicine Consult ---
MACK FITZPATRICK 08/04/16 0649: Assessment/Plan Assessment/Plan Assessment: 80-year-old -[place] lady with a PMH of DM, HTN, hypothyroidism, seizure disorder tapered off Keppra, Chronic osteomyelitis of left heel ongoing 3 years , on suppressive doxycycline 100 mg PO Q 12 and cefuroxime 250 mg PO Q12 treated by Dr. Arredondo (infectious disease at [facility]), vitamin D deficiency, Stage III CKD, anemia who is currently being managed for her chronic osteomyelitis. Past surgical history: Lumbar fusion with transpedicular screws in L2, L3, L5. Fusion at L4-L5 level. (2004). Previous angiogram 05/24/2015: LLE angiogram w/ stenting of L superficial femoral artery (05/24/2015). Normal aorta and iliac arteries bilaterally. 70% calcified stenosis of the distal superficial femoral artery. Single-vessel runoff to the foot via the peroneal artery with collateralization to the posterior tibial artery. 7 mm 4 cm self-expanding stent placed and distal superficial femoral artery with 0% residual stenosis BL LE arterial Doppler (07/26/2016): disease present in the left anterior tibial artery and the dorsalis pedis on the left could not be imaged. On the right, there is decrease flow in the dorsalis pedis. Nowhere present is monophasic flow or areas of significant velocity accelerations. I&D deep to the fascial exposure of the flexor tendon and tendon sheath, biopsies of left calcaneus on 07/25/2016: Negative cultures. Repeat I&D, biopsy and debridement of left calcaneus on 07/31/2016: Bone biopsy culture positive for enterococcus, Morganelli morganii Patient received 1 dose of meropenem on 08/04/2016 Split thickness skin graft to left heel on 08/03/2016 with application of negative pressure wound VAC Ultrasound-guided right common femoral artery access on 07/31/2016. Found to have patent aorta no significant disease, patent BL common iliac, external iliac and intracardiac arteries with no significant disease. Patent L common femoral and profunda femoris with no significant disease. SFA is patent from its origin with no significant disease. Popliteal arteries patent and no significant disease. Tibial peroneal trunk is patent. Anterior tibial artery patent from its origin with a severe disease in the proximal segment. This artery shortly thereafter includes and reconstitutes at the dorsalis pedis. The posterior tibial artery has a very tight stenosis from its origin and has diffuse disease in the midsegment. This artery occludes in the distal segment and reconstitutes at the ankle. Problem list: 1. Osteomyelitis of the left calcaneus s/p I&D X2, split thickness skin graft to left heel 2. 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 Diarrhea: Resolved 4. Asymptomatic bradycardia 5. Hypomagnesemia 6. PAD 7. Pain management 8. Diabetes 9. Hypertension 10. Hypothyroidism 11. Stage III chronic kidney disease 12. Gout 13. Previous seizure in the setting of hypomagnesemia and hypocalcemia 14. History of provoked DVT s/p spinal surgery Plan: Plan: 1. Osteomyelitis of the left heel: Enterococcus, Morganella morganii on bone biopsy 07/31/16 * Status post I&D 2 * Status post split-thickness skin graft to the left heel on 08/03/2016 * Patient received 1 dose of meropenem * Weightbearing status per Dr. Dixon * Hemodynamically stable, afebrile and normal white count * We'll follow up with ID in regards to antibiotics 2. Diarrhea: * Resolved. We'll continue to monitor 3. Hypomagnesemia * We'll supplement with IV magnesium choking or diarrhea that was previously noted in the setting of PO mag supplementation 4. Asymptomatic bradycardia * Noticeable improvement in heart rate and blood pressure over the past 24 hours * EKG yesterday showed normal sinus rate cardiac, normal TX and QTC intervals * Continuing clonidine taper per recommendations from Dr. Rousseau: * Stopped clonidine 0.1 mg BID. Changed to 0.1 mg daily 3 days, 0.05 mg daily 2 days. Reintroduce amlodipine for blood pressure control at 2.5 mg and titrate up as tolerated 5. Peripheral artery disease * Continue on atorvastatin 40 mg daily * Will follow up with vascular surgeon Dr. Boogie * Continue Plavix 75 mg daily 6. Diabetes * Accu-Cheks 67 through 280 over the past 24 hours * Low-dose sliding scale number continued Accu-Cheks * Consistent carbohydrate 3 diet 7. Hypothyroidism * Continue levothyroxine 0.025 mg daily 8. Stage III chronic kidney disease * BUN/CR 27/1.1 * Stable 9. Gout * Continue allopurinol 300 mg daily 10. Seizure in the setting of hypomagnesemia and hypocalcemia * Magnesium 2.0 yesterday * Calcium 9.7 yesterday 11. History of provoked DVT/PE spinal surgery * Heparin 5000 units subcutaneous daily for DVT prophylaxis Problem List: 1. Chronic osteomyelitis of hindfoot 2. Bradycardia 3. Diarrhea 4. DM (diabetes mellitus) 5. HTN (hypertension) 6. CKD (chronic kidney disease) 7. Pain management Subjective Subjective: Interval history: Patient went to the operating room yesterday evening for split-thickness skin graft to the left heel. There are no acute events overnight. Patient reports some mild discomfort in the left calf area and heel. Denies any fevers, chills, nausea, abdominal pain or diarrhea. Review of Systems Constitutional: Reports: see HPI. EENTM: Reports: no symptoms. Cardiovascular: Reports: no symptoms. Respiratory: Reports: no symptoms. Gastrointestinal: Reports: no symptoms. Genitourinary: Reports: no symptoms. Musculoskeletal: Reports: see HPI. Objective Last 24 Hrs of Vital Signs/I&O Vital Signs Date Time Temp Pulse Resp B/P Pulse O2 O2 Flow FiO2 Ox Delivery Rate 08/04 0624 97.3 63 20 128/64 94 Room Air 08/04 0000 99 Nasal 2.0L Cannula 08/03 2233 79 140/68 / 2032 97.4 79 20 140/68 99 Nasal 2.0L Cannula 08/03 1410 98.0 60 18 140/70 99 Room Air 08/03 1114 98.8 67 18 122/80 98 Room Air / 1113 67 122/80 Intake & Output 08/04 1600 08/04 0800 08/04 0000 Intake Total 250 250 Output Total 300 Balance -50 250 Intake, IV 10 10 Intake, Oral 240 240 Output, Urine 300 Physical Exam General Appearance: no apparent distress, alert, comfortable Head: normal appearance Ears, Nose, Throat: hearing grossly normal Cardiovascular: regular rate/rhythm Respiratory: lungs clear, Distant lung sounds Abdomen: normal bowel sounds, soft, non-tender Extremities: 2+ pitting edema BL LE, LLE > RLE. Stable. Left calf/murray is drapped in a clean JELLY bandage. Left heel is also covered in a clean jelly bandage with the wound vac secure at this time. There is no drainage present at this time Current Medications: Current Medications Sig/Little Start time Last Medication Dose Route Stop Time Status Admin Acetaminophen 1,000 MG .STK-MED ONE 08/03 2227 DC PO 08/03 2228 Acetaminophen 500 MG Q4P PRN 08/01 0751 AC 08/03 PO 2232 Allopurinol 300 MG DAILY 07/25 1000 AC 08/03 PO 0825 Amlodipine Besylate 2.5 MG DAILY 08/04 1000 DC PO Amlodipine Besylate 2.5 MG DAILY 08/04 1000 AC PO Amlodipine Besylate 5 MG DAILY 07/25 1000 DC 08/02 PO 0853 Atorvastatin Calcium 40 MG 1700 07/31 1700 AC 08/03 PO 1655 Calcium Carbonate 500 MG BID 07/25 2200 AC 08/03 PO 2233 Clonidine 0.05 MG DAILY 08/06 1000 AC PO 08/07 1001 Clonidine 0.1 MG DAILY 08/04 1000 DC PO 08/06 1001 Clonidine 0.1 MG DAILY 08/03 2200 AC 08/03 PO 2233 Clonidine 0.1 MG BID 07/24 2200 DC 08/02 PO 2217 Clopidogrel Bisulfate 75 MG DAILY 07/25 1000 AC 08/02 PO 0853 Dextrose/Sodium 1,000 ML Q13H 08/03 0800 DC 08/03 Chloride IV 0753 Fentanyl Citrate 100 MCG .STK-MED ONE 08/03 1824 DC IM 08/03 1825 Furosemide 10 MG Q48H 07/25 1000 AC 08/02 PO 0852 Heparin Sodium 5,000 UNIT Q8 07/28 1400 AC 08/04 (Porcine) SC 0617 Hydromorphone HCl 2 MG .STK-MED ONE 08/03 1013 DC IM 08/03 1014 Insulin Aspart 0 TIDAC/HS 08/03 2100 AC 08/04 SC 0852 Insulin Human Regular 0 Q6 08/03 0620 DC 08/03 SC 1804 Levothyroxine Sodium 0.025 MG DAILY AC 07/25 0700 AC 08/04 PO 0616 Loperamide HCl 2 MG Q6P PRN 07/30 1245 AC 07/30 PO 2013 Meropenem 1 GM ONCE ONE 08/04 0615 DC 08/04 IV 08/04 0616 0617 Nystatin 1 JUAN JOSE TID PRN 07/27 0930 AC 08/02 TOP 0854 Patient Medication 1 ED .STK-MED ONE 08/03 1411 DC Teaching ED 08/03 1412 Pregabalin 300 MG BID 03/27 2200 AC 08/03 PO 2233 Results Last 24 Hrs Lab/Radu Results: Laboratory Tests 08/04/16 0655: Anion Gap 8, Estimated GFR 48 L, BUN/Creatinine Ratio 24.5, Magnesium 1.6, CBC w Diff NO MAN DIFF REQ, RBC 3.27 L, MCV 90.9, MCH 29.3, RDW 17.5 H, MPV 10.8 H, Gran % 62.8, Lymphocytes % 26.6, Monocytes % 6.0, Eosinophils % 4.3, Basophils % 0.3, Absolute Granulocytes 4.8, Absolute Lymphocytes 2.1, Absolute Monocytes 0.5, Absolute Eosinophils 0.3, Absolute Basophils 0, PUBS MCHC 32.2 L 08/03/16 1550: CBC w Diff NO MAN DIFF REQ, RBC 3.24 L, MCV 90.7, MCH 29.3, RDW 17.5 H, MPV 10.0, Gran % 54.8, Lymphocytes % 32.6, Monocytes % 7.1, Eosinophils % 5.1 H, Basophils % 0.4, Absolute Granulocytes 4.1, Absolute Lymphocytes 2.4, Absolute Monocytes 0.5, Absolute Eosinophils 0.4, Absolute Basophils 0, PUBS MCHC 32.4 L CARL ALEX,[facility] 08/04/16 1055: Attending MD Review Statement Attending Sign Off Attending Cosign Statement: I have: examined this patient, reviewed [facility] EMR data, discussd w/resident/PA/ BARREL LINER, discussed mgmt plan w/jake, discussed mgmt plan w/CM, discussed mgmt plan w/ pt, agreed w/resident/PA/BARREL LINER, amended to note. Other Findings: Patient seen and examined, feels ok but stil c/o pain in the left foot. She has a wound vac. S/P Split thickness skin graft left heel. Vital Signs Date Time Temp Pulse Resp B/P Pulse O2 O2 Flow FiO2 Ox Delivery Rate 08/04 1048 Room Air 08/04 1046 Room Air 08/04 0907 62 140/80 08/04 0724 97.3 63 20 128/64 94 Room Air 08/04 0000 99 Nasal 2.0L Cannula 08/03 2233 79 140/68 08/03 2032 97.4 79 20 140/68 99 Nasal 2.0L Cannula 08/03 1410 98.0 60 18 140/70 99 Room Air / 1114 98.8 67 18 122/80 98 Room Air / 1113 67 122/80 on exam; aox3, nad. cv; s1,s2, rrr resp; clear abd; aoft, nt, bs+ ext; no edema. skin; + jelly wrap on left foot. Laboratory Tests 08/04 04/ 0655 1550 Chemistry Sodium (137 - 145 mmol/L) 144 Potassium (3.5 - 5.1 mmol/L) 4.4 Chloride (98 - 107 mmol/L) 108 H Carbon Dioxide (22 - 30 mmol/L) 27 Anion Gap (5 - 16) 8 BUN (7 - 17 mg/dL) 27 H Creatinine (0.5 - 1.0 mg/dL) 1.1 H Estimated GFR (>60 ml/min) 48 L BUN/Creatinine Ratio (7 - 25 %) 24.5 Magnesium (1.6 - 2.3 mg/dL) 1.6 Hematology CBC w Diff NO MAN DIFF REQ NO MAN DIFF REQ WBC (4.8 - 10.8 /CUMM) 7.7 7.5 RBC (4.20 - 5.40 /CUMM) 3.27 L 3.24 L Hgb (12.0 - 16.0 G/DL) 9.6 L 9.5 L Hct (37 - 47 %) 29.8 L 29.3 L MCV (81.0 - 99.0 FL) 90.9 90.7 MCH (27.0 - 31.0 PG) 29.3 29.3 RDW (11.5 - 14.5 %) 17.5 H 17.5 H Plt Count (130 - 400 /CUMM) 215 214 MPV (7.4 - 10.4 FL) 10.8 H 10.0 Gran % (42.2 - 75.2 %) 62.8 54.8 Lymphocytes % (20.5 - 51.1 %) 26.6 32.6 Monocytes % (1.7 - 9.3 %) 6.0 7.1 Eosinophils % (0 - 5 %) 4.3 5.1 H Basophils % (0.0 - 2.0 %) 0.3 0.4 Absolute Granulocytes (1.4 - 6.5 /CUMM) 4.8 4.1 Absolute Lymphocytes (1.2 - 3.4 /CUMM) 2.1 2.4 Absolute Monocytes (0.10 - 0.60 /CUMM) 0.5 0.5 Absolute Eosinophils (0.0 - 0.7 /CUMM) 0.3 0.4 Absolute Basophils (0.0 - 0.2 /CUMM) 0 0 PUBS MCHC (33.0 - 37.0 G/DL) 32.2 L 32.4 L Asessment and plan; 80 y/o F with pmh sig for DM, HTN, hypothyroidism, seizure disorder tapered off Keppra, Chronic osteomyelitis of left heel ongoing 3 years, on suppressive doxycycline 100 mg PO Q 12 and cefuroxime 250 mg PO Q12 treated by Dr. Arredondo ( infectious disease at [facility]), vitamin D deficiency, Stage III CKD, anemia who was admitted with the left foot osteomyelitis L status post angiogram as well as debridement of the left foot necrotic wound. Pathology report from July 26 and July 31 is consistent with no osteomyelitis. Now status post split thickness skin graft left heel. Patient still has a wound VAC on. We have to check that the status and weightbearing status with Dr. Dixon. Patient's pain is not well controlled therefore will keep her small dose of tramadol. No continuous antibiotics were recommended by ID. Continue all other current medications. Wound VAC management per podiatry. DVT prophylaxis: Heparin subcutaneous. Patient will be medically stable for discharge to rehabilitation tomorrow.
[2016-08-04 07:24] VITALS: BP 128/64
[2016-08-04 08:00] LABS: ABSOLUTE BASOPHIL COUNT 0 /CUMM (0.0-0.2); ABSOLUTE EOSINOPHIL COUNT 0.3 /CUMM (0.0-0.7); ABSOLUTE GRANULOCYTE CT 4.8 /CUMM (1.4-6.5); ABSOLUTE LYMPH COUNT 2.1 /CUMM (1.2-3.4); ABSOLUTE MONOCYTE COUNT 0.5 /CUMM (0.10-0.60); BASOPHIL % 0.3 % (0.0-2.0); EOSINOPHIL % 4.3 % (0-5); GRANULOCYTE % 62.8 % (42.2-75.2); HEMATOCRIT 29.8 % (37-47); MEAN CORPUSCULAR HGB 29.3 PG (27.0-31.0); MEAN CORPUSCULAR HGB CONC 32.2 G/DL (33.0-37.0); MEAN CORPUSCULAR VOLUME 90.9 FL (81.0-99.0); MEAN PLATELET VOLUME 10.8 FL (7.4-10.4); PLATELET COUNT 215 /CUMM (130-400); RBC DISTRIBUTION WIDTH 17.5 % (11.5-14.5); RED BLOOD CELL CT 3.27 /CUMM (4.20-5.40); WHITE BLOOD CELL COUNT 7.7 /CUMM (4.8-10.8)
[2016-08-04] MEDS ORDERED: LYRICA300 M1 PO (12:24)
[2016-08-04] MEDS ORDERED: FUROSEMIDE40 M1 PO (12:25)
[2016-08-04] MEDS ORDERED: CALCIUM500 M2 PO (12:25)
[2016-08-04] MEDS ORDERED: ALLOPURINOL300 M1 PO (12:25)
[2016-08-04] MEDS ORDERED: MAGNESIUM OXID400 M1 PO (12:25)
[2016-08-04] MEDS ORDERED: AMLODIPINE BESYL5 M1 PO (12:26)
[2016-08-04] MEDS ORDERED: CLOPIDOGREL75 M1 PO (12:26)
[2016-08-04] MEDS ORDERED: VITAMIN D1000 UNIT PO (12:26)
[2016-08-04] MEDS ORDERED: FERROUS SULFAT325 M3 PO (12:27)
[2016-08-04] MEDS ORDERED: GLIPIZIDE ER10 M1 PO (12:27)
[2016-08-04] MEDS ORDERED: NYSTOP60 GM TOP (12:28)
[2016-08-04] MEDS ORDERED: LEVOTHYROXINE25 MCG PO (12:28)
[2016-08-04] MEDS ORDERED: JANUVIA50 M1 PO (12:28)
[2016-08-04] MEDS ORDERED: CLONIDINE HCL0.1 MG PO ×3 (12:29→13:49)
[2016-08-04] MEDS ORDERED: ACETAMINOPHEN500 M4 PO (12:56)
[2016-08-04] MEDS ORDERED: ATORVASTATIN CA40 M1 PO (12:56)
--- NOTE | 2016-08-04 12:56 | PN- Infect Dx ---
Subjective Subjective: Afebrile. She notes discomfort in the left heel. Objective Last 24 Hrs of Vital Signs/I&O Vital Signs Date Time Temp Pulse Resp B/P Pulse O2 O2 Flow FiO2 Ox Delivery Rate 08/04 1136 74 138/70 08/04 1048 Room Air 08/04 1046 Room Air 08/04 0907 62 140/80 08/04 0724 97.3 63 20 128/64 94 Room Air 08/04 0000 99 Nasal 2.0L Cannula 08/03 2233 79 140/68 08/03 2032 97.4 79 20 140/68 99 Nasal 2.0L Cannula 08/03 1410 98.0 60 18 140/70 99 Room Air Intake & Output 08/04 1600 08/04 0800 08/04 0000 Intake Total 250 250 Output Total 300 Balance -50 250 Intake, IV 10 10 Intake, Oral 240 240 Output, Urine 300 Physical Exam Other Physical Findings: She appears comfortable in no acute distress Extremities left heel dressing intact with wound VAC in place Results Last 24 Hours of Lab Results: Laboratory Tests 08/04 08/03 0655 1550 Chemistry Sodium (137 - 145 mmol/L) 144 Potassium (3.5 - 5.1 mmol/L) 4.4 Chloride (98 - 107 mmol/L) 108 H Carbon Dioxide (22 - 30 mmol/L) 27 Anion Gap (5 - 16) 8 BUN (7 - 17 mg/dL) 27 H Creatinine (0.5 - 1.0 mg/dL) 1.1 H Estimated GFR (>60 ml/min) 48 L BUN/Creatinine Ratio (7 - 25 %) 24.5 Magnesium (1.6 - 2.3 mg/dL) 1.6 Hematology CBC w Diff NO MAN DIFF REQ NO MAN DIFF REQ WBC (4.8 - 10.8 /CUMM) 7.7 7.5 RBC (4.20 - 5.40 /CUMM) 3.27 L 3.24 L Hgb (12.0 - 16.0 G/DL) 9.6 L 9.5 L Hct (37 - 47 %) 29.8 L 29.3 L MCV (81.0 - 99.0 FL) 90.9 90.7 MCH (27.0 - 31.0 PG) 29.3 29.3 RDW (11.5 - 14.5 %) 17.5 H 17.5 H Plt Count (130 - 400 /CUMM) 215 214 MPV (7.4 - 10.4 FL) 10.8 H 10.0 Gran % (42.2 - 75.2 %) 62.8 54.8 Lymphocytes % (20.5 - 51.1 %) 26.6 32.6 Monocytes % (1.7 - 9.3 %) 6.0 7.1 Eosinophils % (0 - 5 %) 4.3 5.1 H Basophils % (0.0 - 2.0 %) 0.3 0.4 Absolute Granulocytes (1.4 - 6.5 /CUMM) 4.8 4.1 Absolute Lymphocytes (1.2 - 3.4 /CUMM) 2.1 2.4 Absolute Monocytes (0.10 - 0.60 /CUMM) 0.5 0.5 Absolute Eosinophils (0.0 - 0.7 /CUMM) 0.3 0.4 Absolute Basophils (0.0 - 0.2 /CUMM) 0 0 PUBS MCHC (33.0 - 37.0 G/DL) 32.2 L 32.4 L Last 24 Hours of Radu Results: No recent cultures Assessment/Plan Impression: Stable status post split thickness skin graft to the left heel yesterday, with placement of a wound VAC, now 4 days status post debridement of the left calcaneus, with bone biopsy again negative for osteomyelitis. The bone culture was positive for Enterococcus and Morganella, but feel that this most likely represents contamination from the more superficial tissues. It is not clear if she received the dose of Meropenem preoperatively, but she apparently was given 1 dose this morning. Suggestion: 1. Further management of her left heel per Podiatry 2. Would follow off antibiotics
--- NOTE | 2016-08-04 13:14 | Patient Discharge Instructions ---
Discharge Instructions General Discharge Information You were seen/treated for: 1. Osteomyelitis of the left calcaneus s/p I&D X2, split thickness skin graft to left heel 2. 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 Diarrhea: Resolved 4. Asymptomatic bradycardia 5. Hypomagnesemia 6. PAD 7. Pain management 8. Diabetes 9. Hypertension 10. Hypothyroidism 11. Stage III chronic kidney disease 12. Gout 13. Previous seizure in the setting of hypomagnesemia and hypocalcemia 14. History of provoked DVT s/p spinal surgery You had these procedures: Incision and drainage of the left calcaneous/heel. Split thickness skin graft to the left heel Angiogram of the R femoral artery Watch for these problems: Fever, chills, recurrence of diarrhea, dizziness, weakness, palpitations or shortness of breath Special Instructions: Please follow up with Dr Campbell at the next scheduled appointment. Please follow up with your PCP within 1 week after discharge. PleAse have gthe following blood work done on 08/09/2016. Send results to your PCP. Please set up follow up appointments with your infectious disease, vascular surgeon and furniture inspector as required. Diet Recommended Diet: Heart Healthy Activity Activity Self Limited: Yes Additional ACTIVITY Info: Complete non weight bearing to the left foot until cleared by your speech pathology teacher. Acute Coronary Syndrome Inclusion Criteria At DC or during hospital stay patient has or had the following: ACS DIAGNOSIS No Discharge Core Measures Meds if any: Prescribed or Continued at Discharge Meds if any: NOT Prescribed or Continued at Discharge Congestive Heart Failure Inclusion Criteria At DC or during hospital stay patient has or had the following: CHF DIAGNOSIS No Discharge Core Measures Meds if any: Prescribed or Continued at Discharge Meds if any: NOT Prescribed or Continued at Discharge Cerebrovascular accident Inclusion Criteria At DC or during hospital stay patient has or had the following: CVA/TIA Diagnosis No Discharge Core Measures Meds if any: Prescribed or Continued at Discharge Meds if any: NOT Prescribed or Continued at Discharge Venous thromboembolism Inclusion Criteria VTE Diagnosis No VTE Type NONE VTE Confirmed by (Test) NONE Discharge Core Measures - Per Current guidelines, there needs to be overlap - treatment for the first 5 days of Warfarin therapy. - If discharged on Warfarin prior to 5 days of - overlap therapy, the patient will need to be - assessed for post discharge needs including - *Post discharge parental anticoagulation - *Warfarin and/or parental anticoagulation education - *Follow up date to check INR post discharge At least 5 days overlap therapy as Inpatient No Meds if any: Prescribed or Continued at Discharge Note: Overlap Therapy is Warfarin and Anticoagulant Meds if any: NOT Prescribed or Continued at Discharge
[2016-08-04 14:16] VITALS: BP 140/70
--- NOTE | 2016-08-04 16:40 | PN- Podiatry ---
Subjective Subjective: Patient seen at bedside with no acute complaints. Patient denies nausea vomiting fever chills P patient denies left foot pain. Objective Vital Signs and I&Os Vital Signs Date Time Temp Pulse Resp B/P Pulse O2 O2 Flow FiO2 Ox Delivery Rate 08/04 1416 98.2 90 20 140/70 96 08/04 1136 74 138/70 08/04 1048 Room Air 08/04 1046 Room Air 08/04 0907 62 140/80 08/04 0724 97.3 63 20 128/64 94 Room Air 08/04 0000 99 Nasal 2.0L Cannula 08/03 2233 79 140/68 08/03 2032 97.4 79 20 140/68 99 Nasal 2.0L Cannula Intake & Output 08/04 1600 08/04 0800 08/04 0000 08/03 1600 08/03 0800 08/03 0000 Intake Total 600 250 250 650 0 Output Total 300 300 600 160 Balance 300 -50 250 50 0 -160 Intake, IV 10 10 600 0 Intake, Oral 600 240 240 50 0 Number 0 Bowel Movements Output, Urine 300 300 600 160 Physical Exam: Dressing left foot clean dry and intact. Wound VAC in place with minimal serous drainage noted to the canister. With deep palpation bilateral lower extremity' s. Assessment/Plan Assessment/Plan Status post split thickness skin grafting left foot. Anticipate discharge to SNF tomorrow. Continue strict nonweightbearing left foot. Core Measures/Miscellaneous Venous Thromboembolism VTE Risk Factors: Age > 40, Immobility, paresis, Surgery VTE Contraindications: No Contraindications VTE Diagnosis: No Beta Jesus Alberto Is Beta Jesus Alberto a Home Med? No If Yes, Was This Ordered Today? No Antibiotics Is Patient on Antibiotics? No Attending MD Review Statement Attending Statement Attending MD Statement: examined this patient
[2016-08-04 22:49] VITALS: BP 124/70
[2016-08-05 06:30] VITALS: BP 120/74
--- NOTE | 2016-08-05 12:37 | PN- Att Addend ---
Attending Addendum Attending Brief Note Patient seen and examined, feeling overall much better. Pain is now well controlled. She had a bowel movement. Vital Signs Date Time Temp Pulse Resp B/P Pulse O2 O2 Flow FiO2 Ox Delivery Rate 08/05 0941 63 120/74 08/05 0940 63 120/74 08/05 0800 Room Air 08/05 0630 98.4 63 20 120/74 96 Room Air 08/04 2249 97.6 67 20 124/70 95 08/04 1416 98.2 90 20 140/70 96 on exam; aox3, nad. cv; s1,s2, rrr resp; clear abd; soft, nt, bs+ ext; no edema. skin; + prateek wrap on left foot. no labs today, labs from yesterday a pretty stable. Assessment and recommendations: 80 y/o F with pmh sig for DM, HTN, hypothyroidism, seizure disorder tapered off Keppra, Chronic osteomyelitis of left heel ongoing 3 years, on suppressive doxycycline 100 mg PO Q 12 and cefuroxime 250 mg PO Q12 treated by Dr. Arredondo ( infectious disease at [facility]), vitamin D deficiency, Stage III CKD, anemia who was admitted with the left foot osteomyelitis L status post angiogram as well as debridement of the left foot necrotic wound. Pathology report from July 26 and July 31 is consistent with no osteomyelitis. Now status post split thickness skin graft left heel. From medical standpoint patient is stable for discharge. But infectious disease no antibiotics were continued. Patient had a bowel movement and now pain is well controlled. She should be continued on her medications as recommended. She will be on clonidine taper and it has been mentioned on her CMR. The rest of her medications will be continued. Wound VAC management per Dr. Dixon.
[2016-08-05 13:21] VITALS: BP 120/74
== END 2016-08-05 14:00 | DRG 623 ==
LOC: ENPENDDIS 13:55 → 2NA 13:55
PROVIDERS: Internal Medicine; ADMIT Podiatrist Foot & Ankle Surgery
PROC: 0QBM0ZX Excision of Left Tarsal, Open Approach, Diagnostic (ICD-10-PCS; 2016-07-25)
PROC: 0J9R0ZX Drainage of Left Foot Subcutaneous Tissue and Fascia, Open Approach, Diagnostic (ICD-10-PCS; 2016-07-25)
PROC: 0J9R0ZZ Drainage of Left Foot Subcutaneous Tissue and Fascia, Open Approach (ICD-10-PCS; principal; 2016-07-31)
PROC: 0QBM0ZX Excision of Left Tarsal, Open Approach, Diagnostic (ICD-10-PCS; 2016-07-31)
PROC: B41D1ZZ Fluoroscopy of Aorta and Bilateral Lower Extremity Arteries using Low Osmolar Contrast (ICD-10-PCS; 2016-07-31)
PROC: 0HRNX74 Replacement of Left Foot Skin with Autologous Tissue Substitute, Partial Thickness, External Approach (ICD-10-PCS; 2016-08-03)
DX: E11.69 Type 2 diabetes mellitus with other specified complication (principal); M86.172 Other acute osteomyelitis, left ankle and foot; R56.9 Unspecified convulsions; N18.3 Chronic kidney disease, stage 3 (moderate); Z79.4 Long term (current) use of insulin; E03.9 Hypothyroidism, unspecified; I12.9 Hypertensive chronic kidney disease with stage 1 through stage 4 chronic kidney disease, or unspecified chronic kidney disease; Z86.718 Personal history of other venous thrombosis and embolism
CPT/HCPCS: 2NAP; 2NASP; 87070; 87075; 36415; 73590-LT; 73650-LT; 82436; 87147; 88307; 93005; 93010; 93925; C1725; C1760; J0131; J1644; J1815; J2001; J2185; J2720; J7042; Q9967

== ENCOUNTER → 2018-01-15 | Day surgery (SDC) | payer OTHER, MEDICARE ==
--- NOTE | 2018-01-14 08:56 | History & Physical Pre-Op ---
General Information and HPI History of Present Illness: Sylvia is an 82-year-old female with a long-standing complaint of a nonhealing ulcer to her left heel. The patient has undergone an extended course of local intensive wound care, including periodic debridements, allograft application and total contact casting. None of this is yielded her any significant improvement. The patient was seen by her infectious disease physician at [place] who recommended a formal debridement and negative pressure wound therapy. Allergies/Medications Allergies: Coded Allergies: Penicillins (Severe, SWELLING 01/11/18) adhesive (Intermediate, RASH 07/24/16) Home Med list Acetaminophen 500 MG TABLET 1 TAB PO Q4P PRN PAIN SCALE 4-6 (MODERATE) Allopurinol 300 MG TABLET 1 TAB PO DAILY GOUT (Reported) Amlodipine Besylate 5 MG TABLET 1 TAB PO DAILY HEART (Reported) Atorvastatin Calcium 40 MG TABLET 1 TAB PO DAILY Peripheral vascular disease Calcium Carbonate (Calcium) 500 MG CALCIUM (1,250 MG) TAB.CHEW 2 TAB PO DAILY GI (Reported) Cholecalciferol (Vitamin D3) (Vitamin D) 1,000 UNIT TABLET 1 TAB PO DAILY SUPPLEMENT (Reported) Clonidine HCl 0.1 MG TABLET 0.5 TAB PO DAILY Hypertension Take half a tab on 08/06/16 and 08/07/16. This will complete the taper off this medication Clopidogrel Bisulfate (Clopidogrel) 75 MG TABLET 1 TAB PO DAILY BLOOD THINNER (Reported) Ferrous Sulfate 325 MG (65 MG IRON) TABLET 1 TAB PO DAILY SUPPLEMENT ( Reported) Furosemide 40 MG TABLET 1 TAB PO Q48 WATER PILL (Reported) Glipizide (Glipizide ER) 10 MG TAB.ER.24 1 TAB PO DAILY DIABETES (Reported) Levothyroxine Sodium 25 MCG TABLET 1 TAB PO DAILY AC THYROID (Reported) Magnesium Oxide 400 MG TABLET 1 TAB PO BID SUPPLEMENT (Reported) Nystatin (Nystop) 100,000 UNIT/GRAM POWDER 1 JUAN JOSE TOP BID BREAST (Reported) Pregabalin (Lyrica) 300 MG CAPSULE 1 CAP PO BID NEUROPATHY (Reported) Sitagliptin Phosphate (Januvia) 50 MG TABLET 1 TAB PO DAILY DIABETES ( Reported) Past History Medical History Neurological: seizure EENT: NONE Cardiovascular: hypertension Respiratory: NONE Gastrointestinal: NONE Hepatic: NONE Renal: NONE Musculoskeletal: osteoarthritis Psychiatric: NONE Endocrine: diabetes, hypothyroidism Blood Disorders: DVT Cancer(s): NONE HUMAN SERVICES INSTRUCTOR/Reproductive: NONE History of MRSA: No History of VRE: No History of CDIFF: No Influenza Vaccine: 12/28/15 Surgical History Pertinent Surgical History: R TOE AMPUTATION, L HEEL DEBRIDEMENT SPINAL FUSION Past Family/Social History Family History Relations & Conditions if any FATHER, ; Cause: Myocardial infarct, old. Psychosocial History Who Do You Live With? self Primary Language: Turkish Functional Ability ADLs Independent: dressing, eating, toileting, bathing. IADLs Independent: shopping, housework, finances, food prep, telephone, transportation , medication admin. Review of Systems Review of Systems: Unremarkable except for that noted in history present illness Exam & Diagnostic Data Physical Exam: Lungs clear bilaterally. Heart sounds rate and rhythm regular. Lower extremity physical exam demonstrates intact pedal pulses bilaterally. The dorsalis pedis and posterior tibial arteries are palpable bilaterally. Patient without any sensorimotor deficits. Deep tendon reflexes are grossly intact. Patient noted to have a 7 cm x 8 cm full-thickness Diaz grade 2 ulceration to the plantar aspect of her left foot. No probing or undermining identified. There is slough overlying and otherwise mixed granular fibrotic wound bed. Minimal serous drainage identified. Assessment/Plan Assessment/Plan: Nonhealing ulcer left heel. A lengthy discussion reviewing both surgical and conservative options with the patient at bedside the patient elected to go forward with surgery despite the risks. As Ranked By This Provider Problem List: 1. Non-pressure chronic ulcer of left heel and midfoot with fat layer exposed Attending MD Review Statement Attending Statement Attending MD Statement: examined this patient
[~2018-01-15] VITALS: Ht 162.6 cm; Wt 90.7 kg
[~2018-01-15] MED LIST: ACETAMINOPHEN500 M4 PO; ALLOPURINOL300 M1 PO; AMLODIPINE BESYL5 M1 PO; ATORVASTATIN CA40 M1 PO; CALCIUM500 M2 PO; CLONIDINE HCL0.1 MG PO; CLOPIDOGREL75 M1 PO; FERROUS SULFAT325 M3 PO; FUROSEMIDE40 M1 PO; GLIPIZIDE ER10 M1 PO; JANUVIA50 M1 PO; LEVOTHYROXINE25 MCG PO; LYRICA300 M1 PO; MAGNESIUM OXID400 M1 PO; NYSTOP60 GM TOP; VITAMIN D1000 UNIT PO
[2018-01-15 09:15] LABS: ABSOLUTE BASOPHIL COUNT 0 /CUMM (0.0-0.2); ABSOLUTE EOSINOPHIL COUNT 0.3 /CUMM (0.0-0.7); ABSOLUTE GRANULOCYTE CT 5.9 /CUMM (1.4-6.5); ABSOLUTE LYMPH COUNT 1.9 /CUMM (1.2-3.4); ABSOLUTE MONOCYTE COUNT 0.5 /CUMM (0.10-0.60); BASOPHIL % 0.3 % (0.0-2.0); HEMATOCRIT 34.1 % (37-47); MEAN CORPUSCULAR HGB 30.2 PG (27.0-31.0); MEAN CORPUSCULAR HGB CONC 33.3 G/DL (33.0-37.0); MEAN CORPUSCULAR VOLUME 90.8 FL (81.0-99.0); MEAN PLATELET VOLUME 9.6 FL (7.4-10.4); PLATELET COUNT 231 /CUMM (130-400); RED BLOOD CELL CT 3.76 /CUMM (4.20-5.40); WHITE BLOOD CELL COUNT 8.6 /CUMM (4.8-10.8)
--- NOTE | 2018-01-15 11:03 | Operative Report ---
Operative/Inv Procedure Report Surgery Date: 01/15/18 Name of Procedure: 1 open incision and drainage deep to the deep fascia with exposure of the flexor tendon and tendon sheath multiple sites left heel 2 intraoperative administration of negative pressure wound therapy 3 intraoperative ankle block anesthesia 4 excisional debridement Pre-Operative Diagnosis: 1 open necrotic wound left heel 2 diabetic peripheral neuropathy 3 peripheral vascular disease Post-Operative Diagnosis: The same Estimated Blood Loss: less than 50ml Surgeon/It Integration Architect: Stefan Dixon DPM Anesthesia: moderate sedation, block Operative/Procedure Note Note: After obtaining informed consent the patient was brought to the operating room and placed on the operating table in the supine position. The patient was then securely fastened to the operating table utilizing a safety belt. After menstruation of IV sedation, 10 cc of 0.5% Marcaine plain was infiltrated about the patient's left ankle. The left foot and ankle were then scrubbed, prepped and draped in the usual aseptic manner. Attention directed plantar aspect of the left heel, where a large full-thickness necrotic was identified. A 15 blade was utilized sharply advise skin margins. The dissection was then carried down deep to the deep fascia with exposure of the flexor tendon and tendon sheath multiple sites, both proximally and distally. All necrotic, nonviable infected tissue was sharply evacuated the wound bed. The open wound was then irrigated with 3 L of normal sterile saline infused with 50,000 units of bacitracin. Following this, the foot was redraped and the surgeons top gloves were changed to clean gloves. Any bleeding vessels identified were cauterized or ligated as encountered. Next, negative pressure wound therapy was placed followed by the application of Kerlix and Hua wrap. The patient was noted to tolerate both procedure and anesthesia well and the patient was transported from the operating room to recovery with vital signs stable.
== END ==
LOC: STS 12-25 07:00
PROVIDERS: Podiatrist Foot & Ankle Surgery
DX: E11.621 Type 2 diabetes mellitus with foot ulcer (principal); E11.42 Type 2 diabetes mellitus with diabetic polyneuropathy; L97.422 Non-pressure chronic ulcer of left heel and midfoot with fat layer exposed; E11.52 Type 2 diabetes mellitus with diabetic peripheral angiopathy with gangrene; Z79.84 Long term (current) use of oral hypoglycemic drugs; I10 Essential (primary) hypertension; E03.9 Hypothyroidism, unspecified
CPT/HCPCS: 36415; 88304; 93005; 93010